=== PATIENT | female | born 1935 | race Caucasian/White ===

== ENCOUNTER 2018-04-29 10:13 | Outpatient (CLI) | payer MEDICARE, SELFPAY ==
[2018-04-29 13:01] LABS: Anion Gap 6.2 mmol/L (3-11); BUN 19 mg/dL (7-18); CO2 29.8 mmol/L (21.0-32.0); CREATININE 0.66 mg/dL (0.55-1.02); Calcium 9.8 mg/dL (8.5-10.1); Chloride 98 mmol/L (98-107); Glucose 101 mg/dL (70-100); Potassium 5.1 mmol/L (3.5-5.1); Sodium 134 mmol/L (136-145)
== END 2018-04-29 10:33 ==
PROVIDERS: PCP Family Medicine; Visit Provider Family Medicine
DX: I10 Essential (primary) hypertension (principal)
CPT/HCPCS: 36415; 80048

== ENCOUNTER 2020-02-15 14:10 | Outpatient (REF) | payer MEDICARE, SELFPAY ==
[2020-02-15 14:38] LABS: ALT 24 U/L (14-59); AST 19 U/L (15-37); Albumin 3.9 g/dL (3.4-5.0); Alkaline Phosphatase 81 U/L (46-116); Anion Gap 10.8 mmol/L (3-11); BUN 19 mg/dL (7-18); Bilirubin, Total 0.4 mg/dL (0.2-1.0); CO2 25.2 mmol/L (21.0-32.0); CREATININE 0.76 mg/dL (0.55-1.02); Calcium 10.1 mg/dL (8.5-10.1); Chloride 97 mmol/L (98-107); Glucose 98 mg/dL (74-106); Potassium 4.5 mmol/L (3.5-5.1); Sodium 133 mmol/L (136-145); Total Protein 7.2 g/dL (6.4-8.2)
== END 2020-02-15 14:30 ==
LOC: LBN 14:10
PROVIDERS: PCP Family Medicine; Visit Provider Family Medicine
DX: I10 Essential (primary) hypertension (principal)
CPT/HCPCS: 80053

== ENCOUNTER 2021-02-04 09:02 | Outpatient (CLI) | payer MEDICARE, SELFPAY ==
[2021-02-04 12:58] LABS: ALT 24 U/L (14-59); AST 17 U/L (15-37); Albumin 4.1 g/dL (3.4-5.0); Alkaline Phosphatase 73 U/L (46-116); Anion Gap 9.3 mmol/L (3-11); BUN 15 mg/dL (7-18); Bilirubin, Total 0.4 mg/dL (0.2-1.0); CO2 27.7 mmol/L (21.0-32.0); CREATININE 0.8 mg/dL (0.55-1.02); Calcium 9.3 mg/dL (8.5-10.1); Chloride 99 mmol/L (98-107); Glucose 112 mg/dL (74-106); Potassium 4.1 mmol/L (3.5-5.1); Sodium 136 mmol/L (136-145); Total Protein 7.2 g/dL (6.4-8.2)
== END 2021-02-04 09:03 | disposition home or self-care (01) ==
LOC: LOS 09:03
PROVIDERS: PCP Family Medicine; Visit Provider Family Medicine
DX: I10 Essential (primary) hypertension (principal)
CPT/HCPCS: 36415; 80053

== ENCOUNTER 2022-09-16 19:46 | Inpatient (IN) | payer MEDICARE, SELFPAY ==
[2022-09-16] VITALS (23 sets, daily range): BP systolic 112–115; BP diastolic 58–66; PULSE 72–83; RESP 13–25; TEMP 37.2; O2SAT 95–98
--- NOTE | 2022-09-16 20:00 | RT.EKG_ITS ---
APPROVED REPORT Exam: Resting ECG Reason for Exam: dizzy Patient Location: E HR:75 bpm ECG Measurements Heart Rate 75 AXIS DC 144 P 78 QRSd 82 QRS 47 QT 413 T 64 QTc 462 Conclusion Sinus rhythm...normal P axis, V-rate 60- 99 Probable left atrial enlargement...P >50mS, <-0.10mV V1 Physician: peaking t waves, no stemi
--- NOTE | 2022-09-16 20:15 | DI.CT_ITS ---
Exam(s) CT HEAD CERVICAL SPINE WO EXAM: CT HEAD CERVICAL SPINE WO CLINICAL HISTORY: fall, weak, r/o bleed, stroke. TECHNIQUE: Imaging Protocol: Axial computed tomography images with coronal and sagittal reformatted images were created and reviewed COMPARISON: CT NECK WITH CONTRAST from 04/22/2012 FINDINGS: CT Head: Ventricles and Extra axial spaces: Normal in size and morphology for the patient's age. Hemorrhage: None. Cerebral parenchyma: There are areas of decreased attenuation in the white matter consistent with sma ll vessel ischemic disease. No evidence of an acute territorial infarct. Midline shift: None. Brainstem/Cerebellum: Normal. Calvarium: Normal. Visualized Paranasal sinuses/Mastoids: Clear. Soft Tissues: Unremarkable. CT Cervical Spine: Bones: No acute fracture or subluxation. Degenerative changes are seen in the cervical spine. The barry yola are osteopenic. Soft Tissues: There is a 1.3 cm left thyroid nodule. The nodule shows heterogeneous enhancement. Th is nodule was previously measured at 1.5 cm on the prior examination from 2011. Consider nonemergent thyroid ultrasound. Lung Apices: Clear. IMPRESSION: 1. No acute intracranial process. 2. No acute fracture or subluxation in the cervical spine. RADIATION DOSE DELIVERED: 933.56mGy.cm Total DLP DATA REPOSITORY: All CT scans at this facility are submitted to the National Radiology Data Registry (NRDR) Dose Index Registry (DIR) with the [employer] (ACR). RADIATION OPTIMIZATION: All CT scans at this facility use at least one of these dose optimization te chniques: automated exposure control; mA and/or kV adjustment per patient size (includes targeted exa ms where dose is matched to clinical indication); or iterative reconstruction.
--- NOTE | 2022-09-16 20:26 | DI.RAD_ITS ---
Exam(s) XR CHEST 1V IN DI DEPT EXAM: XR CHEST 1V IN DI DEPT CLINICAL HISTORY: fall, weak, r/o pneumonia TECHNIQUE: 2D digital imaging was performed of the chest. One image was obtained. An AP view was ob tained. COMPARISON: CR CHEST 2 VIEWS PA,LAT from 10/15/2012 FINDINGS: MEDIASTINUM: Normal. HEART: Mild cardiomegaly. PULMONARY VASCULATURE: Normal. LUNGS: No focal consolidating infiltrates. PLEURAL SPACE: No pleural effusion or pneumothorax. BONE:Within normal limits for the patient's age. OTHER FINDINGS:Normal. IMPRESSION: No acute pulmonary findings. DATA REPOSITORY: RADIATION DOSE DELIVERED:
[2022-09-16] MEDS: Normal Saline 500 ML IV ×2 (20:34→22:30)
[2022-09-16 20:37] LABS: BE (Venous) -4 mmol/L (-2-3); HCO3 (Venous) 21 mmol/L (23-28); O2 Sat (Venous) 98 %; TCO2 (Venous) 18 mmol/L (24-29); pCO2 (Venous) 29 mmHg (41-51); pH (Venous) 7.45 (7.31-7.41); pO2 (Venous) 101 mmHg
[2022-09-16 20:38] LABS: Source Nasal/Nares
[2022-09-16 20:42] LABS: Abs Immature Grans 0.16 10^3/uL (0.0-0.06); Absolute Basophil Count 0.05 10^3/uL (0.0-0.2); Absolute Lymphocyte Count 1.38 10^3/uL (1.2-3.4); Absolute Monocyte Count 2.87 10^3/uL (0.1-0.8); Absolute Neutrophil Count 19.27 10^3/uL (1.2-6.7); Basophils % 0.2; HCT 35.5 % (36.0-46.0); HGB 12.7 g/dL (11.2-15.7); Immature Grans % 0.7; Lymphocytes % 5.8; MCH 32.1 pg (27.0-33.0); MCHC 35.8 % (32.0-36.0); MCV 90 fL (80-95); MPV 9.5 fL (8.0-11.0); Monocytes % 12.1; Neutrophils % 81.2; Platelet Count 260 10^3/uL (130-400); RBC 3.96 10^6/uL (3.93-5.22); RDW 12.7 % (11.7-14.6); RDW-SD 42.1 fL; WBC 23.73 10^3/uL (4.4-10.8)
--- NOTE | 2022-09-16 20:53 | W.ED.GENAD ---
Discharge Plan Disposition Patient Disposition: Admit to [facility] Discharge Details Chief Complaint: GenMedical Reason For Visit: Rhabdomyolysis Admit Date/Time: 09/16/22 22:55 Admit Provider: Tu Vela Attending Provider: Tu Vela Primary Care Provider: Olimpia Montez ED Provider: Avtar Kingston Home Meds and New Rx's Prescriptions: No Action lisinopril 40 mg tablet 40 mg PO DAILY Qty: 90 4RF Rx Instructions: increased dose/ take one tablet daily atenolol 25 mg tablet 25 mg PO DAILY Qty: 90 4RF calcium carbonate-vitamin D3 [Caltrate with Vitamin D3] 600 mg(1,500mg) -800 unit tablet 1 tab PO BID Qty: 60 11RF Discharge Data Discharge Date/Time-TO BE ENTERED AT DEPARTURE: 09/17/22 00:00 Medical Decision Making 87-year-old female with a past medical history of anxiety, hypertension, GERD, who lives alone at home, presents today for confusion. Family states that over the weekend which was 4 to 5 days ago the patient states that she had a fall at home. Patient did struggle getting up but was eventually able to do it alone. Family came and saw her this evening and noticed that she was weak, confused, had not been eating or drinking well, and was concerned. They brought her here for further evaluation. Patient denies any focal complaints aside from feeling weak. She denies any headache, chest pain, numbness, tingling, vomiting or diarrhea. She denies any dysuria. She denies any vision changes. She is not on any blood thinners. She states that she does recall falling and does not recall hitting her head. No other complaints at this time. No other modifying factors. Patient is DNR/DNI. Physical exam demonstrates well-appearing female, dry mucous membranes. No focal neurologic deficits. She is ANO x3. No focal weakness. No evidence of significant bruising or decubitus ulcer. Differential includes UTI, less likely pneumonia, dehydration electrolyte abnormality. Because she may have fallen and hit her head I am concerned for an intracranial bleed potentially. We will get a CT scan of the head and neck. X-ray, gently rehydrate, monitor closely and reassess. 11 PM Laboratory work-up is returned, white count of 23, mild left shift, no bandemia. VBG demonstrates no evidence of acidosis or PCO2 retention. Electrolytes stable. Renal function increased compared to normal, creatinine is now 1.3. BUN 39. CPK elevated at 5300 suggestive of rhabdomyolysis. Troponin elevated mildly, suggestive of type II NSTEMI. EKG shows no evidence of STEMI. Urinalysis demonstrates notable urinary tract infection. Patient has been given a total of 1 L of normal saline, she has received 2 g of ceftriaxone for treatment of the UTI. CT scan of the head negative for acute process. Chest x-ray negative for pneumonia. Patient continues to feel well. With the UTI, dehydration and rhabdomyolysis I do feel that the patient would benefit from admission. Patient is DNR/DNI, she was notably resistant to admission. She has refused cardiac catheterization or transfer. Eventually she did accept to stay overnight for rehydration and antibiotics. Family was at bedside and they agree with this plan. Discussed the case with the hospitalist Dr. Vela, he agrees with the assessment and plan. I have extensively reviewed the treatment plan with the patient. I have addressed all patient concerns at this time. I have also discussed the plan with the admitting physician and they agree with the current assessment and plan and have agreed to assume responsibility for the patient. All parties demonstrate verbal understanding and agreement with our assessment and plan at this time. The documentation in this chart was dictated using [employer] dictation software. Please excuse any dictation errors. I will place admission orders on his behalf. FINDINGS: Brain: No intra or extra-axial bleed. Mild atrophy. Moderate periventricular and subcortical white matter disease. Cortical ribbon and central martinez structures are intact. Cerebral ventricles: No hydrocephalus. Basal cisterns are patent. Paranasal sinuses: No mucosal thickening or fluid levels. Mastoid air cells: Mastoid air cells are clear. Bones/joints: No significant bony abnormality. No fracture. Soft tissues: Unremarkable. IMPRESSION: 1. No acute intracranial abnormality. 2. No evidence of acute infarct or hemorrhage FINDINGS: Bones/joints: No acute fracture. No subluxation. Significant disc space narrowing with endplate spondylosis at C3-C4, C4-C5 and C5-C6. Cervical dextroscoliosis. Spinal cord: Central canal narrowing most notable at C5-C6. Lungs: No apical pneumothorax. Pleural spaces: Biapical pleural thickening and calcification. Thyroid: Heterogeneous hyperdense 1.2 cm left thyroid lobe nodule. Soft tissues: Small amount of possible intravascular gas in the retroclavicular regions. Additional focus soft tissue gas medial to the right clavicular head possibly degenerative in origin. IMPRESSION: 1. No acute fracture. 2. Degenerative disc disease. 3. 1.2 cm left thyroid nodule. Consider nonemergent thyroid ultrasound correlation. Thank you for allowing us to participate in the care of your patient. Dictated and Authenticated by: Eduar Alonzo MD 09/16/2022 9:59 PM Eastern Time ([place] & [place]) FINDINGS: Lungs: Chronic interstitial prominence No consolidation. Pleural spaces: Unremarkable. No pleural effusion. No pneumothorax. Heart/Mediastinum: Tortuous aorta and mild cardiomegaly. Bones/joints: Unremarkable. IMPRESSION: No acute findings. Thank you for allowing us to participate in the care of your patient. Dictated and Authenticated by: Sesar Rodríguez MD 09/16/2022 9:24 PM Eastern Time ([place] & [place]) HPI General Date/Time Provider Initiated Documentation: 09/16/22 20:17. HPI Narrative: 87-year-old female with a past medical history of anxiety, hypertension, GERD, who lives alone at home, presents today for confusion. Family states that over the weekend which was 4 to 5 days ago the patient states that she had a fall at home. Patient did struggle getting up but was eventually able to do it alone. Family came and saw her this evening and noticed that she was weak, confused, had not been eating or drinking well, and was concerned. They brought her here for further evaluation. Patient denies any focal complaints aside from feeling weak. She denies any headache, chest pain, numbness, tingling, vomiting or diarrhea. She denies any dysuria. She denies any vision changes. She is not on any blood thinners. She states that she does recall falling and does not recall hitting her head. No other complaints at this time. No other modifying factors. Patient is DNR/DNI. Related Data Home Medications Medication Instructions Recorded Confirmed calcium carbonate 600 mg-vitamin 1 tab PO BID #60 tabs 06/06/20 09/16/22 D3 20 mcg (800 unit) tablet (Caltrate with Vitamin D3) atenolol 25 mg tablet 25 mg PO DAILY #90 tabs 02/28/22 09/16/22 lisinopril 40 mg tablet 40 mg PO DAILY #90 tabs 02/28/22 09/16/22 Previous Rx's Medication Instructions Recorded calcium carbonate 600 mg-vitamin 1 tab PO BID #60 tabs 06/06/20 D3 20 mcg (800 unit) tablet (Caltrate with Vitamin D3) atenolol 25 mg tablet 25 mg PO DAILY #90 tabs 02/28/22 lisinopril 40 mg tablet 40 mg PO DAILY #90 tabs 02/28/22 Allergies Allergy/AdvReac Type Severity Reaction Status Date / Time citalopram AdvReac Intermediate PANIC Verified 09/16/22 20:13 ATTACKS zolpidem AdvReac Intermediate CONFUSION Verified 09/16/22 20:13 General Stated Complaint: GenMedical ED: 3 Review of Systems All systems reviewed & are unremarkable except as noted in HPI and below PFSH All Active Problems Mixed hearing loss, bilateral (Acute) Anxiety (Acute) Essential hypertension (Acute 05/17/13) POLST (Physician Orders for Life-Sustaining Treatment) (Acute) Hearing impairment (Acute) Medical History Gastroesophageal reflux disease (12/18/14) Microscopic hematuria (10/22/16) Surgical History Excision Right cheek~benign mass Extraction of cataract B/L Family History Mother , 96 Heart disease Neoplasm Father , 78 Essential hypertension Heart disease Colon cancer Sister , 50 Cancer Brother , DROWNED at age 39. No problems noted. Sister Breast cancer Son No problems noted. Son No problems noted. Daughter No problems noted. Maternal Grandfather , 48 No problems noted. Paternal Grandfather , 84 No problems noted. Maternal Grandmother , 84 No problems noted. Paternal Grandmother , 74 No problems noted. Social History Smoking/Tobacco Use Status: Never Second Hand Exposure: No Smoking risk assessment performed?: Yes Alcohol Intake: never Drug use: Never Substance use type: does not use Household members: none Housing: house Number of Children: 3 Communication Needs: Hard of Hearing and Corrective Lenses Do you need help understanding health information?: Never Pets and animals: No Sexually active: No Do you think of yourself as: straight/heterosexual Current gender identity: female What is your relationship status?: How often do you talk on the phone with friends or family?: three or more times per week Do you belong to any clubs or organized social groups?: no Panel score (0-1 are the most socially isolated patients): 1 What type of physical activity do you participate in: walking Marylin/Congregation: No preference Drive intox or ride w/intox recycling collections driver: No Exam Narrative Exam Narrative: 1.Const: Well-nourished, Well-developed, appearing stated age 2.Eyes: PERRL, no conjunctival injection, and symmetrical lids. 3.ENT: Atraumatic external nose and ears. Dry MM. Neck: Symmetric, trachea midline, No thyromegaly. There is no evidence of raccoon eyes, woodall sign, CSF rhinorrhea, mastoid tenderness, cranial crepitus, hemotympanum, exophthalmos, or hyphema. Patient demonstrates intact dentition with no signs of tooth avulsion or fracture, no signs of jaw deformity, no evidence of a LeFort's fracture, with an intact palate, nose and orbital region. There is no evidence of a nasal septal hematoma. No proptosis. Jaw closes symmetrically. Airway is clear. 4.CVS: +S1/S2, No murmurs or gallops. Peripheral pulses 2+ and equal in all extremities. Brisk capillary refill in all extremities. 5.RESP: Unlabored respiratory effort. Clear to auscultation bilaterally. No wheezes rales or rhonchi 6.GI: Soft, Nontender/Nondistended, No hepatosplenomegaly. No guarding or rebound. 7.MSK: Normocephalic/Atraumatic, Extremities w/o deformity or ttp No cyanosis or clubbing, Normal movement of all extremities 8.Skin: Warm, Dry. No rashes or lesions. 9.Neuro: tree and shrub technician II-XII grossly intact. Sensation grossly intact, no focal neurologic deficits. All 6 cardinal planes of vision are fully intact. No evidence of rotatory or vertical nystagmus. The patient demonstrated a normal [id number], good dexterity. There was no evidence of dysdiadochokinesia. Sensation was intact bilaterally as well as muscle strength bilaterally for all extremities. Patient was able to verbalize butter cup with no slurring, or miss pronunciation. 10.Psych: (AAO) x3. Appropriate mood and affect Course Vital Signs Vital signs: Vital Signs Temperature 37.2 C 09/16/22 19:51 Pulse 77 09/16/22 19:51 Respiratory Rate 18 09/16/22 19:51 Blood Pressure 112/58 L 09/16/22 19:51 Pulse Oximetry 98 09/16/22 19:51 Temperature 37.2 C 09/16/22 19:51 Temperature Source Tympanic 09/16/22 19:51 Pulse 73 09/16/22 20:31 Pulse 74 09/16/22 20:40 Respiratory Rate 20 09/16/22 20:40 Respiratory Effort Normal 09/16/22 20:03 Respiratory Depth Normal 09/16/22 20:03 Respiratory Pattern Normal 09/16/22 20:03 Blood Pressure 113/58 L 09/16/22 20:31 Blood Pressure Mean 68 09/16/22 20:31 Blood Pressure Position Sitting 09/16/22 19:51 Pulse Oximetry 96 09/16/22 20:40 Oxygen Delivery Method Room Air 09/16/22 19:51 Oxygen Flow Rate 0 09/16/22 19:51 Lab/Test Results Lab/Test Results: Laboratory Tests Range/Units 09/16/22 09/16/22 09/16/22 20:20 20:20 20:30 WBC (4.4-10.8) 10^3/uL RBC (3.93-5.22) 10^6/uL Hgb (11.2-15.7) g/dL Hct (36.0-46.0) % MCV (80-95) fL MCH (27.0-33.0) pg MCHC (32.0-36.0) % RDW (11.7-14.6) % Plt Count (130-400) 10^3/uL MPV (8.0-11.0) fL Immature Gran % Neutrophils % Lymphocytes % Monocytes % Eosinophils % Basophils % Nucleated RBC % (0.0-0.3) % Absolute Neutrophils (1.2-6.7) 10^3/uL Absolute Lymphocytes (1.2-3.4) 10^3/uL Absolute Monocytes (0.1-0.8) 10^3/uL Absolute Eosinophils (0.0-0.7) 10^3/uL Absolute Basophils (0.0-0.2) 10^3/uL VBG pH (7.31-7.41) 7.45 H VBG pCO2 (41-51) mmHg 29 L VBG pO2 mmHg 101 VBG HCO3 (23-28) mmol/L 21 L VBG Total CO2 (24-29) mmol/L 18 L VBG O2 Saturation % 98 VBG Base Excess (-2-3) mmol/L -4 L VBG Lactate (0.6-1.4) mmol/L 1.0 COVID-19 Source Nasal/Nares Range/Units 09/16/22 20:30 WBC (4.4-10.8) 10^3/uL 23.73 H RBC (3.93-5.22) 10^6/uL 3.96 Hgb (11.2-15.7) g/dL 12.7 Hct (36.0-46.0) % 35.5 L MCV (80-95) fL 90 MCH (27.0-33.0) pg 32.1 MCHC (32.0-36.0) % 35.8 RDW (11.7-14.6) % 12.7 Plt Count (130-400) 10^3/uL 260 MPV (8.0-11.0) fL 9.5 Immature Gran % 0.7 Neutrophils % 81.2 Lymphocytes % 5.8 Monocytes % 12.1 Eosinophils % 0.0 Basophils % 0.2 Nucleated RBC % (0.0-0.3) % 0.0 Absolute Neutrophils (1.2-6.7) 10^3/uL 19.27 H Absolute Lymphocytes (1.2-3.4) 10^3/uL 1.38 Absolute Monocytes (0.1-0.8) 10^3/uL 2.87 H Absolute Eosinophils (0.0-0.7) 10^3/uL 0.00 Absolute Basophils (0.0-0.2) 10^3/uL 0.05 VBG pH (7.31-7.41) VBG pCO2 (41-51) mmHg VBG pO2 mmHg VBG HCO3 (23-28) mmol/L VBG Total CO2 (24-29) mmol/L VBG O2 Saturation % VBG Base Excess (-2-3) mmol/L VBG Lactate (0.6-1.4) mmol/L COVID-19 Source
[2022-09-16 21:07] LABS: ALT 74 U/L (14-59); AST 164 U/L (15-37); Alkaline Phosphatase 81 U/L (46-116); Bilirubin, Total 1.1 mg/dL (0.2-1.0); Chloride 97 mmol/L (98-107); Sodium 130 mmol/L (136-145)
[2022-09-16 21:09] LABS: TSH (W/Ref FT4) 1.02 uIU/mL (0.36-3.74)
[2022-09-16 21:14] LABS: COVID-19 PCR Negative (Negative)
--- NOTE | 2022-09-16 21:25 | DI.VRAD_ITS ---
PROCEDURE INFORMATION: Exam: XR Chest Exam date and time: 09/16/2022 9:10 PM Age: 87 years old Clinical indication: Other: Fall, weak, R/O pneumonia TECHNIQUE: Imaging protocol: Radiologic exam of the chest. Views: 1 view. COMPARISON: CT HEAD CERVICAL SPINE WO 09/16/2022 8:51 PM FINDINGS: Lungs: Chronic interstitial prominence No consolidation. Pleural spaces: Unremarkable. No pleural effusion. No pneumothorax. Heart/Mediastinum: Tortuous aorta and mild cardiomegaly. Bones/joints: Unremarkable. IMPRESSION: No acute findings. Dictated and Authenticated by: Sesar Rodríguez MD. Ordering:YESENIA Nova MD
[2022-09-16 21:29] LABS: Albumin 3.4 g/dL (3.4-5.0); BUN 39 mg/dL (7-18); CREATININE 1.3 mg/dL (0.55-1.02); Calcium 9.4 mg/dL (8.5-10.1); Glucose 153 mg/dL (74-106)
[2022-09-16 21:30] LABS: Creatine Kinase 5320 U/L (26-192)
[2022-09-16 21:31] LABS: Troponin I 565 ng/L (<or=60)
[2022-09-16 21:48] LABS: Bilirubin Negative (Negative); Blood Large (Negative); Clarity Clear (Clear); Glucose Negative (Negative); Ketones 40 mg/dL (Negative); Leukocyte Esterase Small (Negative); Nitrite Positive (Negative); Specific Gravity 1.025 (1.005-1.025); Urobilinogen 0.2 mg/dL (Up to 0.2); pH 5.5 (5-8)
[2022-09-16 21:55] LABS: Bacteria Many HPF (Negative); C & S Indicated? Yes; Casts Negative LPF (Negative); Crystals Negative HPF (Negative); Epithelial Cells Few HPF (Negative); Mucus Negative (Negative); Other Cells Negative (Negative); RBC 20-50 HPF (0-2); WBC 20-50 HPF (0-5)
[2022-09-16 22:00] LABS: Diff Comment Agrees w/ Instrument; RBC Morphology Normal
--- NOTE | 2022-09-16 22:00 | DI.VRAD_ITS ---
PROCEDURE INFORMATION: Exam: CT Head Without Contrast Exam date and time: 09/16/2022 8:51 PM Age: 87 years old Clinical indication: Stroke-like symptoms; Other: Weakness, fall; Additional info: Fall, weak, R/O bleed, stroke TECHNIQUE: Imaging protocol: Computed tomography of the head without contrast. Total images: 1968 Radiation optimization: All CT scans at this facility use at least one of these dose optimization techniques: automated exposure control; mA and/or kV adjustment per patient size (includes targeted exams where dose is matched to clinical indication); or iterative reconstruction. Other technique: STROKE PROTOCOL was implemented. COMPARISON: No relevant prior studies available. FINDINGS: Brain: No intra or extra-axial bleed. Mild atrophy. Moderate periventricular and subcortical white matter disease. Cortical ribbon and central martinez structures are intact. Cerebral ventricles: No hydrocephalus. Basal cisterns are patent. Paranasal sinuses: No mucosal thickening or fluid levels. Mastoid air cells: Mastoid air cells are clear. Bones/joints: No significant bony abnormality. No fracture. Soft tissues: Unremarkable. IMPRESSION: 1. No acute intracranial abnormality. 2. No evidence of acute infarct or hemorrhage. ASSESSMENT: ASPECTS ([facility] Stroke Program Early CT Score) is 10. PROCEDURE INFORMATION: Exam: CT Cervical Spine Without Contrast Exam date and time: 09/16/2022 8:51 PM Age: 87 years old Clinical indication: Stroke-like symptoms; Other: Weakness, fall; Additional info: Fall, weak, R/O bleed, stroke TECHNIQUE: Imaging protocol: Computed tomography of the cervical spine without contrast. Radiation optimization: All CT scans at this facility use at least one of these dose optimization techniques: automated exposure control; mA and/or kV adjustment per patient size (includes targeted exams where dose is matched to clinical indication); or iterative reconstruction. COMPARISON: No relevant prior studies available. FINDINGS: Bones/joints: No acute fracture. No subluxation. Significant disc space narrowing with endplate spondylosis at C3-C4, C4-C5 and C5-C6. Cervical dextroscoliosis. Spinal cord: Central canal narrowing most notable at C5-C6. Lungs: No apical pneumothorax. Pleural spaces: Biapical pleural thickening and calcification. Thyroid: Heterogeneous hyperdense 1.2 cm left thyroid lobe nodule. Soft tissues: Small amount of possible intravascular gas in the retroclavicular regions. Additional focus soft tissue gas medial to the right clavicular head possibly degenerative in origin. IMPRESSION: 1. No acute fracture. 2. Degenerative disc disease. 3. 1.2 cm left thyroid nodule. Consider nonemergent thyroid ultrasound correlation. Dictated and Authenticated by: Eduar Alonzo MD. Ordering:YESENIA Nova MD
[2022-09-16] MEDS: cefTRIAXone 2 GM/50 ML BAG IVPB (22:30)
[2022-09-16] MEDS: Aspirin 81 MG CHEW 324 MG CH (23:09)
[2022-09-16] MEDS: Normal Saline 1,000 ML 150 ML IV (23:37)
[2022-09-16 23:57] LABS: Troponin I 427 ng/L (<or=60)
[2022-09-17] VITALS (12 sets, daily range): BP systolic 101–146; BP diastolic 60–84; PULSE 67–129; RESP 14–23; TEMP 36.9–38.4; O2SAT 96–99
--- NOTE | 2022-09-17 03:49 | W.PM.HP.N ---
Date of service: 09/16/22 Time of Service: 23:00 Assessment and Plan Assessment and plan (1) Rhabdomyolysis: Start date: 09/16/22 Status: Acute Assessment and plan: This is an 87-year lady who was found at home 4 days after a fall ambulatory with minimal bruising but altered neuro status and weak. She had an elevated CPK at about 5000 upon evaluation in the ED and will be admitted with IV hydration following dehydration and UTI with treatment. She is a DNR/DNI. (2) UTI (urinary tract infection): Start date: 09/16/22 Status: Acute Assessment and plan: Positive urinalysis with patient on Rocephin IV and to be continued with follow-up on urine culture with sensitivities to guide conversion to oral antibiotic therapy for outpatient treatment. Present the patient needs inpatient treatment because of rhabdomyolysis and dehydration. (3) Acute dehydration: Start date: 09/16/22 Status: Acute Assessment and plan: Secondary to altered menal status and being at home alone after falls. IV hydration and monitor labs. Watch for fluid overload. (4) Elevated troponin level not due to acute coronary syndrome: Start date: 09/16/22 Status: Acute Assessment and plan: Mild to moderate elevation with trending downward in the ED and will be trended in the hospital. Cardiac monitoring is not necessary patient have no symptoms. She is a DNR/DNI. This is most likely secondary to strain of acute dehydration and decreased intake. She does have risk factors of hypertension with unknown lipid status and will be placed on a baby aspirin daily. She was loaded with a full dose aspirin. (5) Multiple falls: Start date: 09/16/22 Status: Acute Assessment and plan: Patient has been following over the last several days and this may be associated with UTI. She had altered mental status and was not drinking well being dehydrated as well. This should resolve with treatment of her acute processes. (6) Hyponatremia: Start date: 09/16/22 Status: Acute Assessment and plan: Gentle IV hydration and trend labs. (7) Essential hypertension: Status: Chronic Assessment and plan: Chronically on atenolol and lisinopril which will be held during his hospital stay with patient being dehydrated and having low normal blood pressure. She does not appear to be septic at this time but does have a significant elevation in the WBC with altered mental status. (8) Thyroid nodule greater than or equal to 1 cm in diameter incidentally noted on imaging study: Start date: 09/16/22 Status: Acute Assessment and plan: New incidental finding on CT of the neck with follow-up outpatient ultrasound recommended. PCP can monitor and follow-up on this new discovery. History of Present Illness History of Present Illness Chief Complaint: Fall at home with altered mental status Narrative: This is an 87-year-old female patient who is on minimal medications at home mostly taking antihypertensives and lives alone presented to the ED with family who found her after 4 to 5 days of not being seen to be confused and wandering at home. The patient did have a fall at home about 4 to 5 days prior to this admission but was able to get up on her own. When the family found her the day of admission she was weak, confused and did not appear to be eating and drinking well. They were concerned and wanted her further evaluated. She had no focal tenderness or pain and had no headache and she denies any nausea or vomiting. She also denied any urinary symptoms. She had not been on aspirin or any anticoagulation. She was evaluated ED with CT of the head and neck as well as chest x-ray and lab did reveal leukocytosis with elevation in the creatinine from her baseline as well as positive UA which was cultured. She had no evidence of pneumonia or injury by imaging. She did have an elevated troponin. The patient was given Rocephin 2 g along with IV hydration and was admitted for UTI with altered mental status and dehydration. She also had positive CPK with rhabdomyolysis which would be treated with IV hydration as with dehydration treatment. Patient is a DNR/DNI. Review of Systems Narrative: 13 point review of systems otherwise unrevealing or stable with patient being a poor historian. PFSH All Active Problems (Updated 09/17/22 @ 04:29 by Tu Vela) Thyroid nodule greater than or equal to 1.5 cm in diameter incidentally noted on imaging study (Acute) Thyroid nodule greater than or equal to 1 cm in diameter incidentally noted on imaging study (Acute) Hyponatremia (Acute) Elevated troponin level not due to acute coronary syndrome (Acute) Acute dehydration (Acute) Multiple falls (Acute) UTI (urinary tract infection) (Acute) Rhabdomyolysis (Acute) Mixed hearing loss, bilateral (Acute) Anxiety (Acute) Essential hypertension (Chronic 05/17/13) POLST (Physician Orders for Life-Sustaining Treatment) (Acute) Hearing impairment (Acute) Medical History Gastroesophageal reflux disease (12/18/14) Microscopic hematuria (10/22/16) Surgical History Excision Right cheek~benign mass Extraction of cataract B/L Family History Mother , 96 Heart disease Neoplasm Father , 78 Essential hypertension Heart disease Colon cancer Sister , 50 Cancer Brother , DROWNED at age 39. No problems noted. Sister Breast cancer Son No problems noted. Son No problems noted. Daughter No problems noted. Maternal Grandfather , 48 No problems noted. Paternal Grandfather , 84 No problems noted. Maternal Grandmother , 84 No problems noted. Paternal Grandmother , 74 No problems noted. Social History Smoking/Tobacco Use Status: Never Second Hand Exposure: No Smoking risk assessment performed?: Yes Alcohol Intake: never Drug use: Never Substance use type: does not use Household members: none Housing: house Number of Children: 3 Communication Needs: Hard of Hearing and Corrective Lenses Do you need help understanding health information?: Never Pets and animals: No Sexually active: No Do you think of yourself as: straight/heterosexual Current gender identity: female What is your relationship status?: How often do you talk on the phone with friends or family?: three or more times per week Do you belong to any clubs or organized social groups?: no Panel score (0-1 are the most socially isolated patients): 1 What type of physical activity do you participate in: walking Marylin/Presybeterian: No preference Drive intox or ride w/intox dedicated local truck driver: No Meds Allergies and Home Medications Allergies Allergy/AdvReac Type Severity Reaction Status Date / Time citalopram AdvReac Intermediate PANIC Verified 09/16/22 20:13 ATTACKS zolpidem AdvReac Intermediate CONFUSION Verified 09/16/22 20:13 Home Medications Medication Instructions Recorded Confirmed Type calcium carbonate 600 mg-vitamin 1 tab PO BID #60 tabs 06/06/20 09/16/22 Rx D3 20 mcg (800 unit) tablet (Caltrate with Vitamin D3) atenolol 25 mg tablet 25 mg PO DAILY #90 tabs 02/28/22 09/16/22 Rx lisinopril 40 mg tablet 40 mg PO DAILY #90 tabs 02/28/22 09/16/22 Rx Exam Narrative Exam Narrative: General: Patient appears appropriate for age, very thin almost cachectic, she awakens and is alert at least to person and place and appears in no acute distress. She is somnolent but it is early in the morning. She appears in no acute distress lying in bed. HEENT: Normocephalic, eyes with pupils equal and reactive to light symmetrically, extraocular movement tact and sclera anicteric. Oropharynx with dry mucosa and poor dentition with carious and missing teeth. Neck: Supple without JVD. Back: Kyphotic without CVA tenderness. Lungs: No focalizing rales or rhonchi, fair aeration. Breast: Exam deferred. Heart: Regular rate and rhythm with no murmurs or gallops appreciated. Abdomen: Scaphoid contour, soft and nontender to palpation with no palpable hepatosplenomegaly. Bowel sounds positive in all quadrants Genitalia/rectal: Exam deferred. Extremities: Without clubbing, cyanosis or pitting edema. Fair capillary refill. Muscle wasting diffusely. There are bruises over the left knee which were not indurated and appear new and almost linear. There is no joint swelling with all joints have fair range of motion. Skin: Pale, warm and dry with decreased turgor. Bruising over left knee as mentioned. Neuro: Cranial nerves II through XII grossly intact, no focalizing motor deficits or tremor. DTRs physiologic and symmetrical. No Babinski's. Psych: Flattened affect with normal mood. No abnormal thought processes manifested but patient is minimal in conversation. Remote and recent memory not testable with patient somnolent with minimal conversation. Results Imaging Imaging Studies: Exam: CT Head Without Contrast Exam date and time: 09/16/2022 8:51 PM Age: 87 years old Clinical indication: Stroke-like symptoms; Other: Weakness, fall; Additional info: Fall, weak, R/O bleed, stroke TECHNIQUE: Imaging protocol: Computed tomography of the head without contrast. Total images: 1967 Radiation optimization: All CT scans at this facility use at least one of these dose optimization techniques: automated exposure control; mA and/or kV adjustment per patient size (includes targeted exams where dose is matched to clinical indication); or iterative reconstruction. Other technique: STROKE PROTOCOL was implemented. COMPARISON: No relevant prior studies available. FINDINGS: Brain: No intra or extra-axial bleed. Mild atrophy. Moderate periventricular and subcortical white matter disease. Cortical ribbon and central martinez structures are intact. Cerebral ventricles: No hydrocephalus. Basal cisterns are patent.? Paranasal sinuses: No mucosal thickening or fluid levels. Mastoid air cells: Mastoid air cells are clear. Bones/joints: No significant bony abnormality. No fracture. Soft tissues: Unremarkable. IMPRESSION: 1. ? No acute intracranial abnormality. 2. ? No evidence of acute infarct or hemorrhage. ASSESSMENT: ASPECTS ([place] Stroke Program Early CT Score) is 10. PROCEDURE INFORMATION: Exam: CT Cervical Spine Without Contrast Exam date and time: 09/16/2022 8:51 PM Age: 87 years old Clinical indication: Stroke-like symptoms; Other: Weakness, fall; Additional info: Fall, weak, R/O bleed, stroke TECHNIQUE: Imaging protocol: Computed tomography of the cervical spine without contrast. Radiation optimization: All CT scans at this facility use at least one of these dose optimization techniques: automated exposure control; mA and/or kV adjustment per patient size (includes targeted exams where dose is matched to clinical indication); or iterative reconstruction. COMPARISON: No relevant prior studies available. FINDINGS: Bones/joints: No acute fracture. No subluxation. Significant disc space narrowing with endplate spondylosis at C3-C4, C4-C5 and C5-C6. Cervical dextroscoliosis. Spinal cord: Central canal narrowing most notable at C5-C6. Lungs: No apical pneumothorax. Pleural spaces: Biapical pleural thickening and calcification. Thyroid: Heterogeneous hyperdense 1.2 cm left thyroid lobe nodule. Soft tissues: Small amount of possible intravascular gas in the retroclavicular regions. Additional focus soft tissue gas medial to the right clavicular head possibly degenerative in origin. IMPRESSION: 1. ? No acute fracture. 2. ? Degenerative disc disease. 3. ? 1.2 cm left thyroid nodule. Consider nonemergent thyroid ultrasound correlation. Exam: XR Chest Exam date and time: 09/16/2022 9:10 PM Age: 87 years old Clinical indication: Other: Fall, weak, R/O pneumonia TECHNIQUE: Imaging protocol: Radiologic exam of the chest. Views: 1 view. COMPARISON: CT HEAD CERVICAL SPINE WO 09/16/2022 8:51 PM FINDINGS: Lungs:? Chronic interstitial prominence No consolidation. Pleural spaces: Unremarkable. No pleural effusion. No pneumothorax. Heart/Mediastinum:? Tortuous aorta and mild cardiomegaly. Bones/joints: Unremarkable. IMPRESSION: No acute findings. Labs 09/16/22 20:30 09/16/22 20:20 Labs: Laboratory Results - last 24 hr 09/16/22 09/16/22 09/16/22 20:20 20:20 20:20 WBC RBC Hgb Hct MCV MCH MCHC RDW Plt Count MPV Immature Gran % Neutrophils % Lymphocytes % Monocytes % Eosinophils % Basophils % Nucleated RBC % Absolute Neutrophils Absolute Lymphocytes Absolute Monocytes Absolute Eosinophils Absolute Basophils RBC Morphology VBG pH 7.45 H VBG pCO2 29 L VBG pO2 101 VBG HCO3 21 L VBG Total CO2 18 L VBG O2 Saturation 98 VBG Base Excess -4 L VBG Lactate Sodium 130 L Potassium 4.0 Chloride 97 L Carbon Dioxide 21.0 Anion Gap 12.0 H BUN 39 H Creatinine 1.3 H Est GFR (CKD-EPI 2020) 40.30 Glucose 153 H Calcium 9.4 Magnesium Total Bilirubin 1.1 H AST 164 H ALT 74 H Alkaline Phosphatase 81 Creatine Kinase 5320 H Troponin I 565 H* Total Protein 7.0 Albumin 3.4 TSH 1.02 Urine Color Urine Clarity Urine pH Ur Specific Purdum Urine Protein Urine Ketones Urine Blood Urine Nitrite Urine Bilirubin Urine Urobilinogen Ur Leukocyte Esterase Urine RBC Urine WBC Ur Epithelial Cells Urine Crystals Urine Bacteria Urine Casts Urine Mucus Urine Other Ur Culture Indicated? Urine Glucose COVID-19 Source SARS-CoV-2 (PCR) 09/16/22 09/16/22 09/16/22 20:20 20:20 20:30 WBC RBC Hgb Hct MCV MCH MCHC RDW Plt Count MPV Immature Gran % Neutrophils % Lymphocytes % Monocytes % Eosinophils % Basophils % Nucleated RBC % Absolute Neutrophils Absolute Lymphocytes Absolute Monocytes Absolute Eosinophils Absolute Basophils RBC Morphology VBG pH VBG pCO2 VBG pO2 VBG HCO3 VBG Total CO2 VBG O2 Saturation VBG Base Excess VBG Lactate 1.0 Sodium Potassium Chloride Carbon Dioxide Anion Gap BUN Creatinine Est GFR (CKD-EPI 2020) Glucose Calcium Magnesium 2.0 Total Bilirubin AST ALT Alkaline Phosphatase Creatine Kinase Troponin I Total Protein Albumin TSH Urine Color Urine Clarity Urine pH Ur Specific Purdum Urine Protein Urine Ketones Urine Blood Urine Nitrite Urine Bilirubin Urine Urobilinogen Ur Leukocyte Esterase Urine RBC Urine WBC Ur Epithelial Cells Urine Crystals Urine Bacteria Urine Casts Urine Mucus Urine Other Ur Culture Indicated? Urine Glucose COVID-19 Source Nasal/Nares SARS-CoV-2 (PCR) Negative 09/16/22 09/16/22 09/16/22 20:30 21:40 23:25 WBC 23.73 H RBC 3.96 Hgb 12.7 Hct 35.5 L MCV 90 MCH 32.1 MCHC 35.8 RDW 12.7 Plt Count 260 MPV 9.5 Immature Gran % 0.7 Neutrophils % 81.2 Lymphocytes % 5.8 Monocytes % 12.1 Eosinophils % 0.0 Basophils % 0.2 Nucleated RBC % 0.0 Absolute Neutrophils 19.27 H Absolute Lymphocytes 1.38 Absolute Monocytes 2.87 H Absolute Eosinophils 0.00 Absolute Basophils 0.05 RBC Morphology Normal VBG pH VBG pCO2 VBG pO2 VBG HCO3 VBG Total CO2 VBG O2 Saturation VBG Base Excess VBG Lactate Sodium Potassium Chloride Carbon Dioxide Anion Gap BUN Creatinine Est GFR (CKD-EPI 2020) Glucose Calcium Magnesium Total Bilirubin AST ALT Alkaline Phosphatase Creatine Kinase Troponin I 427 H* Total Protein Albumin TSH Urine Color Yellow Urine Clarity Clear Urine pH 5.5 Ur Specific Purdum 1.025 Urine Protein >=300 H Urine Ketones 40 H Urine Blood Large H Urine Nitrite Positive H Urine Bilirubin Negative Urine Urobilinogen 0.2 Ur Leukocyte Esterase Small H Urine RBC 20-50 H Urine WBC 20-50 H Ur Epithelial Cells Few Urine Crystals Negative Urine Bacteria Many Urine Casts Negative Urine Mucus Negative Urine Other Negative Ur Culture Indicated? Yes Urine Glucose Negative COVID-19 Source SARS-CoV-2 (PCR) Last Vital Signs Temp 37.1 C 09/17/22 00:03 Pulse 77 09/17/22 00:03 Resp 18 09/17/22 00:03 BP 118/71 09/17/22 00:03 Pulse Ox 97 09/17/22 00:03 Time Spent Time spent with Patient: >75 minutes Time was spent: preparing to see the patient(eg.review tests), obtaining and/or reviewing separately otained hiistory, ordering medications,tests, procedures, referring, communicating with other health director of home care hospice, indepentently interpreting results and care coordination
[2022-09-17] MEDS: Acetaminophen 325 MG TAB PO ×2 (04:30→13:51)
[2022-09-17] MEDS: Heparin 5,000 UNITS/ML VIAL 5000 UNITS SC ×3 (05:11→21:16)
[2022-09-17 06:02] LABS: HCT 31.2 % (36.0-46.0); HGB 10.8 g/dL (11.2-15.7); MCH 31.5 pg (27.0-33.0); MCHC 34.6 % (32.0-36.0); MCV 91 fL (80-95); MPV 9.2 fL (8.0-11.0); Platelet Count 217 10^3/uL (130-400); RBC 3.43 10^6/uL (3.93-5.22); RDW-SD 42.8 fL; WBC 19.65 10^3/uL (4.4-10.8)
[2022-09-17 06:27] LABS: ALT 58 U/L (14-59); AST 99 U/L (15-37); Albumin 2.4 g/dL (3.4-5.0); Alkaline Phosphatase 70 U/L (46-116); Anion Gap 10.4 mmol/L (3-11); BUN 33 mg/dL (7-18); Bilirubin, Total 0.7 mg/dL (0.2-1.0); CO2 20.6 mmol/L (21.0-32.0); CREATININE 1.2 mg/dL (0.55-1.02); Calcium 8.2 mg/dL (8.5-10.1); Chloride 102 mmol/L (98-107); Estimated GFR 44.36 (mL/min/1.73m2); Glucose 118 mg/dL (74-106); Magnesium 1.8 mg/dL (1.8-2.4); Potassium 3.5 mmol/L (3.5-5.1); Sodium 133 mmol/L (136-145); Total Protein 5.5 g/dL (6.4-8.2)
[2022-09-17 06:28] LABS: Troponin I 353 ng/L (<or=60)
[2022-09-17] MEDS: Aspirin 81 MG CHEW PO (08:35)
[2022-09-17] MEDS: Normal Saline Flush 10 ML SYR IVP ×2 (08:35→21:16)
--- NOTE | 2022-09-17 08:52 | OT.INIE ---
Occupational Therapy Notes Inpatient Occupational Therapy Evaluation Date: 09/17/22 Referring Doctor:Tu Vela MD OT Orders: Non-Urgent: Limited Ability Precautions: Fall, Standard, DNR/DNI PATIENT PROFILE/ADMITTING DIAGNOSIS: Pt is a 87 year old female who was admitted for the following dx of Thyroid nodule greater than or equal to 1.5 cm in diameter incidentally noted on imaging study (Acute) Thyroid nodule greater than or equal to 1 cm in diameter incidentally noted on imaging study (Acute), Hyponatremia (Acute), Elevated troponin level not due to acute coronary syndrome (Acute), Acute dehydration (Acute) Multiple falls (Acute), UTI (urinary tract infection) (Acute), Rhabdomyolysis (Acute), Mixed hearing loss, bilateral (Acute), Anxiety (Acute). Past Medical History: All Active Problems?(Updated 09/17/22 @ 04:29 by Tu Vela) Thyroid nodule greater than or equal to 1.5 cm in diameter incidentally noted on imaging study (Acute) Thyroid nodule greater than or equal to 1 cm in diameter incidentally noted on imaging study (Acute) Hyponatremia (Acute) Elevated troponin level not due to acute coronary syndrome (Acute) Acute dehydration (Acute) Multiple falls (Acute) UTI (urinary tract infection) (Acute) Rhabdomyolysis (Acute) Mixed hearing loss, bilateral (Acute) Anxiety (Acute) Essential hypertension (Chronic 05/17/13) POLST (Physician Orders for Life-Sustaining Treatment) (Acute) Hearing impairment (Acute) Medical History? Gastroesophageal reflux disease (12/18/14) Microscopic hematuria (10/22/16) Surgical History? Excision Right cheek~benign massExtraction of cataract B/L Social History/Home Situation: Pt states that she lives in a private home and is (I) at her baseline level of function. She reports that she does her own wood and home tasks. She is (I) with her dressing and bathing routines. She notes that she does not need any adaptive devices at her baseline level of function. SUBJECTIVE: Pt states that she is feeling better. Her daughter is present in the room and notes that she is doing better today than yesterday. OBJECTIVE: General Observation: Pleasant, she is hard of hearing but her hearing aids are at home. Mental Status: A&Ox4 Pain: slight c/o pain throughout back with bruising noticed ROM: RUE AROM WFL L UE AROM WFL STRENGTH: RUE 4/5 throughout LUE 3+/5 throughout, pt notes some weakness. FUNCTIONAL MOBILITY/ADLS: BATHING seated in bed with max (A) set up Bathing UE (I) Bathing LE (I) DRESSING seated in bed Dressing UE (I) Dressing LE NT GROOMING (I) with brushing her hair, AROM WFL to be (I) with oral hygiene TOILETING NT EATING sitting in bed (I) BALANCE: Static sitting Normal Dynamic Sitting Normal SPECIAL TESTS: Daily Activity Limitations Standardized Measure [facility] AM PAC ?6 clicks? Daily Activity Inpatient Short Form: Raw score: 23 Standardized score: 51.12 CMS score: 15.86% INFORMED CONSENT/EDUCATION: Pt instructed in purpose of OT Consult and plan of care. ASSESSMENT: Patient is a 87-year-old female referred to occupational therapy services with diagnosis of Thyroid nodule greater than or equal to 1.5 cm in diameter incidentally noted on imaging study (Acute) Thyroid nodule greater than or equal to 1 cm in diameter incidentally noted on imaging study (Acute), Hyponatremia (Acute), Elevated troponin level not due to acute coronary syndrome (Acute), Acute dehydration (Acute) Multiple falls (Acute), UTI (urinary tract infection) (Acute), Rhabdomyolysis (Acute), Mixed hearing loss, bilateral (Acute), Anxiety (Acute). Patient presents with clinical signs and symptoms consistent with dx, as demonstrated by the following impairment level findings: Weakness noted in her (L) UE although not limiting in her functional activities, bruising on her back which she is aware off, decreased functional activity tolerance. AMPAC score 23 Patient is assessed as a Low [id number] complexity based on the following: History: see above Examination: see functional limitations as noted above Presentation: evolving Decision Making: AMPAC score 23 GOALS Goals x1 week 1. Transfers (I) 2. Bathing standing at sink (I) PLAN OF CARE/TREATMENT PLAN: 1x/day, 3 days/ week x 1week Initiate Occupational Therapy Services for bathing, dressing, grooming, toileting, eating, transfer training. DISCHARGE RECOMMENDATIONS Home when medically cleared per MD. TREATMENT TIME/MINUTES/CODES 15494, [id number], 25 minutes (08:25) Hannah Barnes OTR/L [facility] [place], [place]
--- NOTE | 2022-09-17 09:00 | RT.EKG_ITS ---
APPROVED REPORT Exam: Resting ECG Reason for Exam: elevated troponin Patient Location: I HR:64 bpm ECG Measurements Heart Rate 64 AXIS OK 146 P 77 QRSd 80 QRS 44 QT 447 T 53 QTc 462 Conclusion Sinus rhythm...normal P axis, V-rate 50- 99 Probable left atrial enlargement...P >50mS, <-0.10mV V1
[2022-09-17 09:21] LABS: Lab Add On Test DONE
[2022-09-17 09:43] LABS: Creatine Kinase 2408 U/L (26-192)
--- NOTE | 2022-09-17 09:48 | PT.INIE ---
PT Notes Visit Reasons: Rhabdomyolysis, UTI, Dehydration Inpatient Physical Therapy Evaluation Date: 09/17/2022 Referring Doctor: Tu Vela PT Orders: PT CONSULT: limited ability Precautions: standard, fall risk Patient Profile/Admitting Diagnosis: Rhabdomyolysis, UTI, acute dehydration Rena is a pleasant 87-year-old female presenting to ED after approximately 4 days after a fall she presents with weakness and altered mental status to the ED on 09/16/2022. Prior to admission patient independent at home had started using single-point cane over the last couple of days due to unsteady on feet and difficulty getting up off the floor after putting wood in the stove. In general she does not use assistive device. She states that she feels tired and has no acute pain reported. PMHX: All Active Problems?(Updated 09/17/22 @ 04:29 by Tu Vela) Thyroid nodule greater than or equal to 1.5 cm in diameter incidentally noted on imaging study (Acute) Thyroid nodule greater than or equal to 1 cm in diameter incidentally noted on imaging study (Acute) Hyponatremia (Acute) Elevated troponin level not due to acute coronary syndrome (Acute) Acute dehydration (Acute) Multiple falls (Acute) UTI (urinary tract infection) (Acute) Rhabdomyolysis (Acute) Mixed hearing loss, bilateral (Acute) Anxiety (Acute) Essential hypertension (Chronic 05/17/13) POLST (Physician Orders for Life-Sustaining Treatment) (Acute) Hearing impairment (Acute) Medical History? Gastroesophageal reflux disease (12/18/14) Microscopic hematuria (10/22/16) Surgical History? Excision Right cheek~benign massExtraction of cataract B/L Social History/Home Situation: Patient lives alone in her home prior to admission with out assistive device. Patient has son who lives nearby but works daily. Patient independent in managing stairs and all activities of daily living prior to admission. Current Functional Limitations: Patient had started using SPC secondary to difficulty getting off the ground But otherwise does not typically use AD.. Patient is weak and fatigues easily limited tolerance to standing and decreased balance. Equipment Owned/DME: SPC, will likely need RW Subjective: I do not have any pain right now I just feel really tired I have not been able to sleep I know I should have gone to the hospital sooner and then I probably would not be in this mass Objective: General Observation: Patient is sitting up in hospital bed able to carry on full conversation she is hard of hearing and hears better out of her left ear. She is able to give general history of what brought her to the hospital. Currently she has a catheter. She has bruising in both shins and forearm she has an IV in her right arm although not hooked up at this moment. Mental Status: Alert and orientated x3 although not sure what day of the week it is once we tell her that it is Thursday she is able to describe that she has not eaten since Thursday. Pain: 0/10 Vital Signs: Monitored by nursing staff ROM: Right Upper Extremity: WFL Left Upper Extremity: WFL Right Lower Extremity: WFL Left Lower Extremity: WFL Strength: Right Upper Extremity: WFL Left Upper Extremity: WFL Right Lower Extremity: WFL Left Lower Extremity: WFL Sensation: Normal sensation to light touch Bed Mobility/Transfers: Patient able to reposition in bed although slow and difficult on the hospital bed mattress. Sit to stand hospital bed to RW supervision and verbal cueing for hand placement Stand to sit RW to hospital bed supervision and verbal cueing for hand placement Gait: Ambulate with contact-guard with RW x40 feet with decreased stride length slow gait pattern and verbal cueing to stay within the RW Balance: Static Sitting: Normal Dynamic Sitting: Normal Static Standing: Unsteady, fair able to stand on first trial times less than 5 seconds without holding onto RW, second trial 20 seconds Dynamic Standing: Poor unable to march in place without holding onto RW Special Tests: Mobility Limitations Standardized Measure [facility] AM-PAC 6 clicks Basic Mobility Inpatient Short Form: Raw Score: 19 standardized Score: [] CMS Score: 41.77 Informed Consent/Education: Patient instructed in purpose of PT consult and plan of care. Assessment: Patient is a 87year old female referred to physical therapy services with the diagnosis of rhabdomyolysis, UTI, dehydration. Patient presents with clinical signs and symptoms consistent with admission diagnosis, as demonstrated by the following impairment level findings: Limited gait, unsteady balance, decreased endurance, decreased mobility. Impairments are contributing to the following functional limitations: AMPAC score. Patient is assessed as a Low 78392 complexity based on the following: History: Lives alone, rhabdomyolysis, UTI, dehydration Examination: As outlined above Presentation: Stable Decision Making: Low Goals: Goals X1 week 1. Supine-Sit independent without VC 2. Sit-Supine independent without VC 3. Sit-Stand independent 4. Stand-Sit independent 5. Bed-Chair independent 6. Chair-Bed independent 7. Gait ambulate with least AD RW and progressed to SPC as able 8. Stairs evaluate 9. Independent with home exercise program 10. Balance good dynamic and static standing Plan of Care/Treatment Plan: Treatment: [id number] 10' sit to stand to sit to RW 3x, marching in place with CTG 5x, standing static 2x20 sec, amb with RW sup w/ v/c x40' 1-2x/day, 7 days/week x 1 week. Plan of care has been reviewed with the FILM RENTAL CLERK providing the service under Physical Therapy direction. Initiate Physical Therapy intervention for strengthening, bed mobility, transfers, gait, stairs, balance training, use of assistive device. DISCHARGE RECOMMENDATIONS: [] Home with no services [] [x] Home with services physical therapy to assess home setting and progress ambulatory and independent status Home with outpatient PT [] [] SNF for continued rehabilitation [] [] Longterm Care [] [] SNF versus LTC based on ability to participate and progress [] TREATMENT CODE/TIME:34170 , 48382 30'
--- NOTE | 2022-09-17 11:01 | INITIAL_ITS ---
- If Service Date Differs Date of service: 09/17/22 Time of Service: 11:01 Care Management Initial Assess REASON FOR HOSPITALIZATION:: URI, Rhabdomyolysis, Acute dehydration PAST MEDICAL HISTORY/PAST SURGICAL HISTORY:: All Active Problems (Updated 09/17/22 @ 04:29 by Tu Vela). Thyroid nodule greater than or equal to 1.5 cm in diameter incidentally noted on imaging study (Acute). Thyroid nodule greater than or equal to 1 cm in diameter incidentally noted on imaging study (Acute). Hyponatremia (Acute). Elevated troponin level not due to acute coronary syndrome (Acute). Acute dehydration (Acute). Multiple falls (Acute). UTI (urinary tract infection) (Acute). Rhabdomyolysis (Acute). Mixed hearing loss, bilateral (Acute). Anxiety (Acute). Essential hypertension (Chronic 05/17/13). POLST (Physician Orders for Life-Sustaining Treatment) (Acute). Hearing impairment (Acute). Medical History . Gastroesophageal reflux disease (12/18/14). Microscopic hematuria (10/22/16). Surgical History . Excision. Right cheek~benign mass. Extraction of cataract. B/L PREVIOUS FUNCTIONAL STATUS/SOCIAL/FAMILY SUPPORTS:: Gabi is and lives alone in [place], [place]. She has a supportive family, which live locally. Gabi drives and is fully active and independent with her ADL's and within the community at baseline. Up until 4 days ago Gabi reports that she was able to shovel snow and fill her wood stove. She also enjoys cooking and working around her yard. CURRENT FUNCTIONAL STATUS:: Gabi was lying in bed visiting with her daughter Kirstin when CM met with her. She is awake and easily engages in conversation. Gabi enjoys her independence and speaks fondly on her ability to man the stove and shovel her yard. She does quite well living alone, up until about 4 days ago she fell filling her stove. ADVANCE DIRECTIVES:: None on file Has patient been provided with info about the portal/API?: Yes Did the patient sign up for the portal?: No CODE STATUS:: DNR/DNI (COLST on file) INSURANCE COVERAGE / FINANCIAL ISSUES:: Medicare CURRENT HOME/COMMUNITY SERVICES/EQUIPMENT:: Recently started using a walking stick. PRIMARY CARE PHYSICIAN:: [facility] POTENTIAL DISCHARGE NEEDS:: Evaluation for increased community support, discharge plan of care. PATIENT/FAMILY EDUCATION NEEDS:: Review discharge instructions, limitations, medications and plan to follow up with community providers. Discuss ask me three. TRANSPORTATION:: Via private vehicle with family. PLAN:: Anticipate, Gabi will discharge home with [facility] RN/PT (if indicated) via private vehicle with family. She will follow up with community providers and discharge plan of care as prescribed. Gabi declines a referral to [facility] and [facility].
--- NOTE | 2022-09-17 14:50 | PT.INNT ---
Date of service: 09/17/22 Time of Service: 15:03 PT Notes Visit Reasons: Rhabdomyolysis, UTI, Dehydration 09/17/2022 Met at the door by the patient's daughter who requested to hold PT session this afternoon, as she feels the patient is too tired and reports that the patient is upset that she has not been able to sleep. Nursing made aware. Will attempt to resume PT services tomorrow morning.
[2022-09-17] MEDS: Lactated Ringers 1,000 ML 100 ML IV (15:20)
--- NOTE | 2022-09-17 16:56 | W.PM.PROGNOT ---
Date of Service Date of service: 09/17/22 Time of Service: 16:56 Assessment and Plan Assessment and plan (1) Sepsis: Status: Acute Assessment and plan: Due to UTI, present on admission. Obtained blood cultures due to persistent fever. Obtain US renal. Continue empiric ceftriaxone. Prior cx data w/ mixed gram positive beverly. (2) UTI (urinary tract infection): Start date: 09/16/22 Status: Acute Assessment and plan: As above (3) Rhabdomyolysis: Start date: 09/16/22 Status: Acute Assessment and plan: In setting of immobilty. Continue IVF. Trend CPK. (4) Acute dehydration: Start date: 09/16/22 Status: Acute Assessment and plan: Continue IVF overnight, carefully monitoring volume status. (5) Elevated troponin level not due to acute coronary syndrome: Start date: 09/16/22 Status: Acute Assessment and plan: Suspect this is due to rhabdomyolysis. No clinical sx of ACS. Echo w/o wall motion abnormalities. Can pursue stress testing as outpatient. Does not require telemetry at this time. (6) Multiple falls: Start date: 09/16/22 Status: Acute Assessment and plan: PT consulted. (7) Hyponatremia: Start date: 09/16/22 Status: Acute Assessment and plan: Improving with IV hydration. Continue to trend. (8) Essential hypertension: Status: Chronic Assessment and plan: Continue to hold atenolol and lisinopril. (9) Thyroid nodule greater than or equal to 1 cm in diameter incidentally noted on imaging study: Start date: 09/16/22 Status: Acute Assessment and plan: Incidental finding on CT - obtain outpatient ultrasound. (10) DVT prophylaxis: Status: Acute Assessment and plan: SC heparin (11) Discharge planning issues: Status: Acute Assessment and plan: DNR/DNI PT consulted Palliative care consulted. Subjective Subjective Interval history since last seen: Ms Whiting states she is feeling better. She describes suprapubic discomfort like a urinary tract infection. She has a good appetite today and that's an improvement. Denies dizziness, chest pain, shortness of breath, nausea. Exam Narrative Exam Narrative: General: Pleasant frail elderly female who is A&Ox3, DEERING, appears tired HEENT: EOMI, MMM Heart: RRR, mildly tachycardic Lungs: CTAB Abdomen: soft, nontender, nondistended Extremities: no edema BLEs Objective Last Vital Signs Temp 38.2 C H 09/17/22 15:18 Pulse 89 09/17/22 15:18 Resp 16 09/17/22 15:18 BP 121/64 09/17/22 15:18 Pulse Ox 96 09/17/22 15:18 Laboratory Results - last 24 hr 09/16/22 09/16/22 09/16/22 20:20 20:20 20:20 WBC RBC Hgb Hct MCV MCH MCHC RDW Plt Count MPV Immature Gran % Neutrophils % Lymphocytes % Monocytes % Eosinophils % Basophils % Nucleated RBC % Absolute Neutrophils Absolute Lymphocytes Absolute Monocytes Absolute Eosinophils Absolute Basophils RBC Morphology VBG pH 7.45 H VBG pCO2 29 L VBG pO2 101 VBG HCO3 21 L VBG Total CO2 18 L VBG O2 Saturation 98 VBG Base Excess -4 L VBG Lactate Sodium 130 L Potassium 4.0 Chloride 97 L Carbon Dioxide 21.0 Anion Gap 12.0 H BUN 39 H Creatinine 1.3 H Est GFR (CKD-EPI 2020) 40.30 Glucose 153 H Calcium 9.4 Magnesium Total Bilirubin 1.1 H AST 164 H ALT 74 H Alkaline Phosphatase 81 Creatine Kinase 5320 H Troponin I 565 H* Total Protein 7.0 Albumin 3.4 TSH 1.02 Urine Color Urine Clarity Urine pH Ur Specific [place] Urine Protein Urine Ketones Urine Blood Urine Nitrite Urine Bilirubin Urine Urobilinogen Ur Leukocyte Esterase Urine RBC Urine WBC Ur Epithelial Cells Urine Crystals Urine Bacteria Urine Casts Urine Mucus Urine Other Ur Culture Indicated? Urine Glucose COVID-19 Source SARS-CoV-2 (PCR) Add-On Test Request 09/16/22 09/16/22 09/16/22 20:20 20:20 20:30 WBC RBC Hgb Hct MCV MCH MCHC RDW Plt Count MPV Immature Gran % Neutrophils % Lymphocytes % Monocytes % Eosinophils % Basophils % Nucleated RBC % Absolute Neutrophils Absolute Lymphocytes Absolute Monocytes Absolute Eosinophils Absolute Basophils RBC Morphology VBG pH VBG pCO2 VBG pO2 VBG HCO3 VBG Total CO2 VBG O2 Saturation VBG Base Excess VBG Lactate 1.0 Sodium Potassium Chloride Carbon Dioxide Anion Gap BUN Creatinine Est GFR (CKD-EPI 2020) Glucose Calcium Magnesium 2.0 Total Bilirubin AST ALT Alkaline Phosphatase Creatine Kinase Troponin I Total Protein Albumin TSH Urine Color Urine Clarity Urine pH Ur Specific [place] Urine Protein Urine Ketones Urine Blood Urine Nitrite Urine Bilirubin Urine Urobilinogen Ur Leukocyte Esterase Urine RBC Urine WBC Ur Epithelial Cells Urine Crystals Urine Bacteria Urine Casts Urine Mucus Urine Other Ur Culture Indicated? Urine Glucose COVID-19 Source Nasal/Nares SARS-CoV-2 (PCR) Negative Add-On Test Request 09/16/22 09/16/22 09/16/22 20:30 21:40 23:25 WBC 23.73 H RBC 3.96 Hgb 12.7 Hct 35.5 L MCV 90 MCH 32.1 MCHC 35.8 RDW 12.7 Plt Count 260 MPV 9.5 Immature Gran % 0.7 Neutrophils % 81.2 Lymphocytes % 5.8 Monocytes % 12.1 Eosinophils % 0.0 Basophils % 0.2 Nucleated RBC % 0.0 Absolute Neutrophils 19.27 H Absolute Lymphocytes 1.38 Absolute Monocytes 2.87 H Absolute Eosinophils 0.00 Absolute Basophils 0.05 RBC Morphology Normal VBG pH VBG pCO2 VBG pO2 VBG HCO3 VBG Total CO2 VBG O2 Saturation VBG Base Excess VBG Lactate Sodium Potassium Chloride Carbon Dioxide Anion Gap BUN Creatinine Est GFR (CKD-EPI 2020) Glucose Calcium Magnesium Total Bilirubin AST ALT Alkaline Phosphatase Creatine Kinase Troponin I 427 H* Total Protein Albumin TSH Urine Color Yellow Urine Clarity Clear Urine pH 5.5 Ur Specific [place] 1.025 Urine Protein >=300 H Urine Ketones 40 H Urine Blood Large H Urine Nitrite Positive H Urine Bilirubin Negative Urine Urobilinogen 0.2 Ur Leukocyte Esterase Small H Urine RBC 20-50 H Urine WBC 20-50 H Ur Epithelial Cells Few Urine Crystals Negative Urine Bacteria Many Urine Casts Negative Urine Mucus Negative Urine Other Negative Ur Culture Indicated? Yes Urine Glucose Negative COVID-19 Source SARS-CoV-2 (PCR) Add-On Test Request 09/17/22 09/17/22 09/17/22 05:50 05:50 05:50 WBC 19.65 H RBC 3.43 L Hgb 10.8 L Hct 31.2 L MCV 91 MCH 31.5 MCHC 34.6 RDW 13.0 Plt Count 217 MPV 9.2 Immature Gran % Neutrophils % Lymphocytes % Monocytes % Eosinophils % Basophils % Nucleated RBC % Absolute Neutrophils Absolute Lymphocytes Absolute Monocytes Absolute Eosinophils Absolute Basophils RBC Morphology VBG pH VBG pCO2 VBG pO2 VBG HCO3 VBG Total CO2 VBG O2 Saturation VBG Base Excess VBG Lactate Sodium 133 L Potassium 3.5 Chloride 102 Carbon Dioxide 20.6 L Anion Gap 10.4 BUN 33 H Creatinine 1.2 H Est GFR (CKD-EPI 2020) 44.36 Glucose 118 H Calcium 8.2 L Magnesium 1.8 Total Bilirubin 0.7 AST 99 H ALT 58 Alkaline Phosphatase 70 Creatine Kinase Troponin I 353 H* Total Protein 5.5 L Albumin 2.4 L TSH Urine Color Urine Clarity Urine pH Ur Specific [place] Urine Protein Urine Ketones Urine Blood Urine Nitrite Urine Bilirubin Urine Urobilinogen Ur Leukocyte Esterase Urine RBC Urine WBC Ur Epithelial Cells Urine Crystals Urine Bacteria Urine Casts Urine Mucus Urine Other Ur Culture Indicated? Urine Glucose COVID-19 Source SARS-CoV-2 (PCR) Add-On Test Request DONE 09/17/22 09/17/22 05:50 10:00 WBC RBC Hgb Hct MCV MCH MCHC RDW Plt Count MPV Immature Gran % Neutrophils % Lymphocytes % Monocytes % Eosinophils % Basophils % Nucleated RBC % Absolute Neutrophils Absolute Lymphocytes Absolute Monocytes Absolute Eosinophils Absolute Basophils RBC Morphology VBG pH VBG pCO2 VBG pO2 VBG HCO3 VBG Total CO2 VBG O2 Saturation VBG Base Excess VBG Lactate Sodium Potassium Chloride Carbon Dioxide Anion Gap BUN Creatinine Est GFR (CKD-EPI 2020) Glucose Calcium Magnesium Total Bilirubin AST ALT Alkaline Phosphatase Creatine Kinase 2408 H Troponin I Cancelled Total Protein Albumin TSH Urine Color Urine Clarity Urine pH Ur Specific [place] Urine Protein Urine Ketones Urine Blood Urine Nitrite Urine Bilirubin Urine Urobilinogen Ur Leukocyte Esterase Urine RBC Urine WBC Ur Epithelial Cells Urine Crystals Urine Bacteria Urine Casts Urine Mucus Urine Other Ur Culture Indicated? Urine Glucose COVID-19 Source SARS-CoV-2 (PCR) Add-On Test Request Objective Narrative Objective Narrative: Echo: LV is normal size. Wall thickness is normal. LVEF is estimated visually at 60%. There are no segmental wall motion abnormalities. The aortic valve appears trileaflet with thickening of all cusps. There is moderate aortic regurgitation and no significant stenosis. There is mild mitral regurgitation. The peak right ventricular systolic pressure is 40 mgHg. Time Spent with Patient Time Spent with Patient: 35-49 minutes Time was spent: preparing to see the patient(eg.review tests), obtaining and/or reviewing separately otained hiistory, ordering medications,tests, procedures, referring, communicating with other health patient care technician instructor, indepentently interpreting results, counseling the patient and care coordination
[2022-09-17] MEDS: cefTRIAXone 2 GM/50 ML BAG IVPB (21:15)
[2022-09-18] MEDS: Lactated Ringers 1,000 ML 100 ML IV (02:39)
[2022-09-18 03:57] VITALS: BP 140/75; PULSE 75; RESP 16; TEMP 36.7; O2SAT 96
[2022-09-18] MEDS: Heparin 5,000 UNITS/ML VIAL 5000 UNITS SC ×3 (05:33→22:33)
[2022-09-18 06:04] LABS: Absolute Basophil Count 0.03 10^3/uL (0.0-0.2); Absolute Lymphocyte Count 1.21 10^3/uL (1.2-3.4); Absolute Monocyte Count 1.71 10^3/uL (0.1-0.8); Absolute Neutrophil Count 13.55 10^3/uL (1.2-6.7); Basophils % 0.2; HCT 30.8 % (36.0-46.0); HGB 10.6 g/dL (11.2-15.7); Immature Grans % 0.6; Lymphocytes % 7.3; MCH 31.2 pg (27.0-33.0); MCHC 34.4 % (32.0-36.0); MCV 91 fL (80-95); MPV 9.2 fL (8.0-11.0); Monocytes % 10.3; Neutrophils % 81.6; Platelet Count 217 10^3/uL (130-400); RDW-SD 42.8 fL
[2022-09-18 06:22] LABS: ALT 60 U/L (14-59); AST 68 U/L (15-37); Albumin 2.2 g/dL (3.4-5.0); Alkaline Phosphatase 78 U/L (46-116); Anion Gap 10.4 mmol/L (3-11); BUN 27 mg/dL (7-18); Bilirubin, Direct 0.1 mg/dL (0.0-0.2); Bilirubin, Total 0.3 mg/dL (0.2-1.0); CO2 21.6 mmol/L (21.0-32.0); CREATININE 1.3 mg/dL (0.55-1.02); Calcium 8.3 mg/dL (8.5-10.1); Chloride 105 mmol/L (98-107); Creatine Kinase 981 U/L (26-192); Glucose 127 mg/dL (74-106); Magnesium 1.8 mg/dL (1.8-2.4); Potassium 3.7 mmol/L (3.5-5.1); Sodium 137 mmol/L (136-145); Total Protein 5.4 g/dL (6.4-8.2)
[2022-09-18 06:23] LABS: Diff Comment Agrees w/ Instrument; RBC Morphology Normal
[2022-09-18 07:29] VITALS: BP 145/73; PULSE 76; RESP 16; TEMP 37.3; O2SAT 96
--- NOTE | 2022-09-18 08:00 | DI.US_ITS ---
Exam(s) US RENAL EXAM: US RENAL CLINICAL HISTORY: UTI. TECHNIQUE: Miller scale, color and spectral Doppler were used. COMPARISON: None. FINDINGS: Renal size in cm: Right: 9.6. Left: 11.2. Echogenicity: Normal. Hydronephrosis: No. Cyst or mass: No. Nephrolithiasis: No. Other findings: None. Bladder:Cannot be evaluated. The patient has a John catheter in place. Renal color flow: Symmetric and within normal limits. IMPRESSION: 1. Unremarkable examination. 2. The urinary bladder cannot be evaluated. The bladder is decompressed and the patient has a John catheter in place. DATA REPOSITORY:
[2022-09-18] MEDS: Aspirin 81 MG CHEW PO (08:06)
[2022-09-18 08:38] LABS: Lab Add On Test DONE
[2022-09-18 08:59] LABS: NT-proBNP 4014 pg/mL (<300)
[2022-09-18 09:02] LABS: Troponin I 133 ng/L (<or=60)
--- NOTE | 2022-09-18 10:35 | PT.INTREAT ---
Date of service: 09/18/22 Time of Service: 10:05 PT Notes Visit Reasons: Rhabdomyolysis, UTI, Dehydration Inpatient Physical Therapy Treatment Note [facility] Date: 09/18/2022 PRECAUTIONS: Fall, activity as tolerated SUBJECTIVE: Gabi is pleasant and agreeable to participating in PT this morning. She reports that she is feeling much better today, although states that she did not get much rest last night. She also reports that she is feeling somewhat weaker than her baseline. OBJECTIVE: PAIN: No c/o pain BED MOBILITY/TRANSFERS Sit-stand: SBA Stand-sit: SBA GAIT Assistive Device: No AD FWW Weight bearing: Full Assist: CGA Distance: 75' without AD + 125' with SPC in a.m.; 200' in p.m. Deviation: Slow pacing and short step height/length, somewhat unsteady, mild path deviation THEREX: Patient was instructed in a LE strengthening program, completed in a seated position, to include: ankle pumps, heel raises, LAQ and hip flexion. In a.m., patient was instructed in functional [id number], standing hip extension, hip flexion and heel raises, as well as functional step-ups to 4 step. STAIRS: Up/down 3x4 and 2x6 using B rails and a step-to pattern with SBA ASSESSMENT: Patient tolerated session well, without complaint. She was able to tolerate a progression in gait distance, although demonstrates unsteady gait without assistive device support due to weakness. PLAN: Continue with global strengthening, as well as gait and transfer training for improved safety with mobility TREATMENT CODE/TIME: Session 1: 25 minutes; 10247 x2 (10:05) Session 2: 28 minutes; 25187, 94708 (14:35)
[2022-09-18 11:25] VITALS: BP 144/76; PULSE 76; RESP 16; TEMP 36.5; O2SAT 98
--- NOTE | 2022-09-18 14:59 | PDOC.CMPRO ---
- If Service Date Differs Date of service: 09/18/22 Time of Service: 14:59 Care Management Progress Note S/O: Gabi was lying in bed, reported being tired; no needs noted. She did meet with Dr. Hernández of Palliative Care and completed a COLST. CM continues to follow. A: 87 year old female admitted 09/16/22 for Rhabdomyolysis, UTI, Dehydration P: Gabi will discharge home with [facility] RN/PT (if indicated) via private vehicle with family. She will follow up with community providers and discharge plan of care as prescribed. Gabi declines a referral to [facility] and [facility].
--- NOTE | 2022-09-18 15:03 | W.PALLCONSUL ---
Date of service: 09/18/22 Time of Service: 15:03 History of Present Illness Narrative: Gabi Whiting is an 87-year-old woman from [facility] who was admitted to the hospital 3 days ago after a fall at home resulting in rhabdomyolysis and developing a UTI. Previous medical problems include hypertension and hearing impairment. Palliative care team has been asked to see her to review goals of care and offer additional support. Patient seen today with her daughter Kirstin in the room. Patient reports that 3 to 4 days prior to admission she began feeling increasingly weak in her legs, had increasing difficulty walking. Today she cannot recall having had a fall but her daughter says she had reported a fall to them with a few small bruises on her knees and the backs of her legs. PCP has listed history of frequent falls on problem list but patient denied. Patient and daughter tell me her blood pressure is always high in the doctor's office. She does not check blood pressure at home. She and her daughter cannot recall her having orthostatic symptoms at home. Looking at clinic blood pressure readings, they vary between being elevated and being in normal range. Her blood pressure medicines have been held during hospital admission because of rhabdomyolysis and reduced kidney function from baseline. Care Team: Primary Care physician: Olimpia Montez Audiology/ENT: [facility] office Social HX: Lives alone in house in [facility]. Heats her home with wood, stacks her own wood (has backup boiler), shovels her own snow. 3 children all live nearby, 1 son next-door. They check in on her frequently and help with shopping and other tasks. 4 grandchildren and several great-grandchildren. She drives short distances when weather is good and she is feeling strong. Additional support services:None Impression of currents health status:My health was pretty good before now What bothers you the most:Leg weakness so that she cannot walk as much as she usually does. What worries you the most:NOTHING Function: Ambulation: Previously ambulated without assist. PT has her using a walker ADLs: Completely independent. iADLs: Occasional assistance with shopping and driving from family but can do on her own. Otherwise completely independent. I did not query financial planner. Hearing: Has hearing aids but does not use them. Vision: Okay as per patient. Palliative Performance Scale % Ambulation Activity and Evidence of Disease Self Care Intake Level of Consciousness 100 Full Normal activity, no evidence of disease Full Normal Full 90 Full Normal activity, some evidence of disease Full Normal Full 80 Full Normal activity with effort, some evidence of disease Full Normal or reduced Full 70 Reduced Unable to do normal work, some evidence of disease Full Normal or reduced Full 60 Reduced Unable to do hobby or some housework, significant disease Occasional assist necessary Normal or reduced Full or confusion 50 Mainly sit/lie Unable to do any work, extensive disease Considerable assistance required Normal or reduced Full or confusion 40 Mainly in bed Unable to do any work, extensive disease Mainly assistance Normal or reduced Full, drowsy, or confusion 30 Totally bed bound Unable to do any work, extensive disease Total care Reduced Full, drowsy, or confusion 20 Totally bed bound Unable to do any work, extensive disease Total care Minimal sips Full, drowsy, or confusion 10 Totally bed bound Unable to do any work, extensive disease Total care Mouth care only Drowsy or coma 0 - - - - Patient Score: Prior to admission PPS 90. Spiritual history: Does not attend mormon. Palliative review of systems: Pain: Denies Dyspnea: Denies GI symptoms: Finally had a bowel movement today. Denies nausea or vomiting Appetite: Improving, reports weight stable over the last year Depression: Denies Anxiety: None Sleep: Reports trouble sleeping since her . Difficult to get more thorough history. Sounds like she gets up once or twice a night but is able to fall back to sleep. Advanced Care Planning: Advanced Directive: None on file Health Care Agent: Kirstin Whiting, daughter COLST: 2019 COLST reviewed. DNR/DNI, transfer treat, comfort measures only . Limitations: Assessment and Plan Assessment and plan (1) Palliative care encounter: Status: Acute (2) Advanced care planning/counseling discussion: Status: Acute Assessment and plan: Note in [facility] system that patient met with palliative care nurse practitioner Corinne Simeon in 2019. At that time she wanted to be DNI DNR. She said at that time she would not want to go to the hospital for treatment as she definitely would not want a feeding tube. COLST reviewed today. Although trial of antibiotics and IV hydration is checked, comfort measures only is also checked. I asked patient if she was glad she came to the hospital and got treated. She said she was. She would like to to be treated in the hospital with antibiotics and fluids if she could be come well enough to go home. She was very concerned that I was going to cancel her DNI/DNR order. I reassured her that this would stand. We discussed scenarios such as appendicitis. She would agree to surgery only if there was a very high chance that she could return to her previous level of functioning and living independently. At this point she became very tired and requested that we not discuss advanced care planning further. New COLST was written up confimring previous wishes (DNR/DNI, trial of antibiotics and IV hydration if indicated. No feeding tube, avoid invasive interventions, no ICU, no pressors). The one adjustment was to switch from comfort measures only to avoid invasive interventions. Patient then stated that I do not want to discuss this any further . Based on this palliative care team will not schedule routine follow-up with her. However we are happy to see her upon request at any time. (3) Multiple falls: Status: Acute Assessment and plan: Consider possibility of whitecoat hypertension at PCP office. This could have contributed to falls. Suggest reducing hypertension med doses if and when blood pressure medicine indicated. I spoke with daughter Kirstin about getting home blood pressure monitor. (4) UTI (urinary tract infection): Status: Acute (5) Rhabdomyolysis: Status: Acute (6) Elevated serum creatinine: Status: Acute PFSH All Active Problems Elevated serum creatinine (Acute) Advanced care planning/counseling discussion (Acute) Palliative care encounter (Acute) Discharge planning issues (Acute) DVT prophylaxis (Acute) Sepsis (Acute) Thyroid nodule greater than or equal to 1.5 cm in diameter incidentally noted on imaging study (Acute) Thyroid nodule greater than or equal to 1 cm in diameter incidentally noted on imaging study (Acute) Hyponatremia (Acute) Elevated troponin level not due to acute coronary syndrome (Acute) Acute dehydration (Acute) Multiple falls (Acute) UTI (urinary tract infection) (Acute) Rhabdomyolysis (Acute) Mixed hearing loss, bilateral (Acute) Anxiety (Acute) Essential hypertension (Chronic 05/17/13) POLST (Physician Orders for Life-Sustaining Treatment) (Acute) Hearing impairment (Acute) Medical History Gastroesophageal reflux disease (12/18/14) Microscopic hematuria (10/22/16) Surgical History Excision Right cheek~benign mass Extraction of cataract B/L Family History Mother , 96 Heart disease Neoplasm Father , 78 Essential hypertension Heart disease Colon cancer Sister , 50 Cancer Brother , DROWNED at age 39. No problems noted. Sister Breast cancer Son No problems noted. Son No problems noted. Daughter No problems noted. Maternal Grandfather , 48 No problems noted. Paternal Grandfather , 84 No problems noted. Maternal Grandmother , 84 No problems noted. Paternal Grandmother , 74 No problems noted. Social History Smoking/Tobacco Use Status: Never Second Hand Exposure: No Smoking risk assessment performed?: Yes Alcohol Intake: never Drug use: Never Substance use type: does not use Household members: none Housing: house Number of Children: 3 Communication Needs: Hard of Hearing and Corrective Lenses Do you need help understanding health information?: Never Pets and animals: No Sexually active: No Do you think of yourself as: straight/heterosexual Current gender identity: female What is your relationship status?: How often do you talk on the phone with friends or family?: three or more times per week Do you belong to any clubs or organized social groups?: no Panel score (0-1 are the most socially isolated patients): 1 What type of physical activity do you participate in: walking Marylin/Orthodox: No preference Drive intox or ride w/intox road train driver: No Exam Narrative Exam Narrative: Thin elderly woman sitting in a chair. Talkative and vibrant. Moderate to severely hard of hearing. Able to understand when spoken into her left ear. Color is good. Results Last Vital Signs Temp 36.5 C 09/18/22 11:25 Pulse 76 09/18/22 11:25 Resp 16 09/18/22 11:25 BP 144/76 H 09/18/22 11:25 Pulse Ox 98 09/18/22 11:25 Labs 09/18/22 05:50 09/18/22 05:50 Labs: Laboratory Results - last 24 hr 09/18/22 09/18/22 09/18/22 05:50 05:50 05:50 WBC 16.60 H RBC 3.40 L Hgb 10.6 L Hct 30.8 L MCV 91 MCH 31.2 MCHC 34.4 RDW 13.0 Plt Count 217 MPV 9.2 Immature Gran % 0.6 Neutrophils % 81.6 Lymphocytes % 7.3 Monocytes % 10.3 Eosinophils % 0.0 Basophils % 0.2 Nucleated RBC % 0.0 Absolute Neutrophils 13.55 H Absolute Lymphocytes 1.21 Absolute Monocytes 1.71 H Absolute Eosinophils 0.00 Absolute Basophils 0.03 RBC Morphology Normal Sodium 137 Potassium 3.7 Chloride 105 Carbon Dioxide 21.6 Anion Gap 10.4 BUN 27 H Creatinine 1.3 H Est GFR (CKD-EPI 2020) 40.30 Glucose 127 H Calcium 8.3 L Magnesium 1.8 Total Bilirubin 0.3 Conjugated Bilirubin 0.1 AST 68 H ALT 60 H Alkaline Phosphatase 78 Creatine Kinase 981 H Troponin I NT-Pro-B Natriuret Pep Total Protein 5.4 L Albumin 2.2 L Add-On Test Request DONE 09/18/22 05:50 WBC RBC Hgb Hct MCV MCH MCHC RDW Plt Count MPV Immature Gran % Neutrophils % Lymphocytes % Monocytes % Eosinophils % Basophils % Nucleated RBC % Absolute Neutrophils Absolute Lymphocytes Absolute Monocytes Absolute Eosinophils Absolute Basophils RBC Morphology Sodium Potassium Chloride Carbon Dioxide Anion Gap BUN Creatinine Est GFR (CKD-EPI 2020) Glucose Calcium Magnesium Total Bilirubin Conjugated Bilirubin AST ALT Alkaline Phosphatase Creatine Kinase Troponin I 133 H* NT-Pro-B Natriuret Pep 4014 H Total Protein Albumin Add-On Test Request
--- NOTE | 2022-09-18 15:41 | W.PM.PROGNOT ---
Date of Service Date of service: 09/18/22 Time of Service: 15:41 Assessment and Plan Assessment and plan (1) Sepsis: Status: Acute Assessment and plan: Due to UTI, present on admission. Obtained blood cultures due to persistent fever. Repeat cultures from 09/17/2022 are pending. WBCs still elevated at 16,000 but trending down Renal sound was unremarkable Continue empiric ceftriaxone. Prior cx data w/ mixed gram positive beverly. (2) UTI (urinary tract infection): Start date: 09/16/22 Status: Acute Assessment and plan: As above (3) Rhabdomyolysis: Start date: 09/16/22 Status: Acute Assessment and plan: Rhabdomyolysis is resolving CK is now down to 981. IV fluids have been discontinued (4) Acute dehydration: Start date: 09/16/22 Status: Resolved Assessment and plan: Patient is now tolerating oral diet quite well IV fluids have been discontinued. (5) Elevated troponin level not due to acute coronary syndrome: Start date: 09/16/22 Status: Acute Assessment and plan: Suspect this is due to rhabdomyolysis. No clinical sx of ACS. Echo w/o wall motion abnormalities. LVEF 60% stable moderate aortic regurgitation and mild mitral regurgitation. Can pursue stress testing as outpatient. Does not require telemetry at this time. (6) Multiple falls: Start date: 09/16/22 Status: Acute Assessment and plan: PT consulted. (7) Hyponatremia: Start date: 09/16/22 Status: Resolved Assessment and plan: Discontinue IV fluids (8) Essential hypertension: Status: Chronic Assessment and plan: Atenolol and lisinopril remain on hold. We will continue to hold lisinopril in the setting of acute kidney injury Will resume her atenolol in the morning. (9) Thyroid nodule greater than or equal to 1 cm in diameter incidentally noted on imaging study: Start date: 09/16/22 Status: Acute Assessment and plan: Incidental finding on CT - obtain outpatient ultrasound. (10) DVT prophylaxis: Status: Acute Assessment and plan: SC heparin (11) Discharge planning issues: Status: Acute Assessment and plan: DNR/DNI PT consulted Palliative care consulted. Subjective Subjective Interval history since last seen: Gabi is feeling better she denies any fever or chills no rigors and no abdominal pain or nausea or vomiting. She had a good bowel movement today. Her only complaint is she was upset by the palliative care physician who reviewed her C.O.L.S.T. form. Dr. Hernández updated the COLST to reflect that the patient indeed wants treatments and to be brought to the hospital but just does not want heroics including life support/CPR or intubation. I went over the patients labs and workup w/ her and her daughter, Kirstin, who works in the cafeteria Exam Narrative Exam Narrative: Elderly female sitting up in her chair talking with her family no acute distress. Lungs are clear to auscultation Heart is regular rate and rhythm Abdomen soft nontender nondistended No flank tenderness Lower extremities without edema Objective Last Vital Signs Temp 36.5 C 09/18/22 11:25 Pulse 76 09/18/22 11:25 Resp 16 09/18/22 11:25 BP 144/76 H 09/18/22 11:25 Pulse Ox 98 09/18/22 11:25 Laboratory Results - last 24 hr 09/18/22 09/18/22 09/18/22 05:50 05:50 05:50 WBC 16.60 H RBC 3.40 L Hgb 10.6 L Hct 30.8 L MCV 91 MCH 31.2 MCHC 34.4 RDW 13.0 Plt Count 217 MPV 9.2 Immature Gran % 0.6 Neutrophils % 81.6 Lymphocytes % 7.3 Monocytes % 10.3 Eosinophils % 0.0 Basophils % 0.2 Nucleated RBC % 0.0 Absolute Neutrophils 13.55 H Absolute Lymphocytes 1.21 Absolute Monocytes 1.71 H Absolute Eosinophils 0.00 Absolute Basophils 0.03 RBC Morphology Normal Sodium 137 Potassium 3.7 Chloride 105 Carbon Dioxide 21.6 Anion Gap 10.4 BUN 27 H Creatinine 1.3 H Est GFR (CKD-EPI 2020) 40.30 Glucose 127 H Calcium 8.3 L Magnesium 1.8 Total Bilirubin 0.3 Conjugated Bilirubin 0.1 AST 68 H ALT 60 H Alkaline Phosphatase 78 Creatine Kinase 981 H Troponin I NT-Pro-B Natriuret Pep Total Protein 5.4 L Albumin 2.2 L Add-On Test Request DONE 09/18/22 05:50 WBC RBC Hgb Hct MCV MCH MCHC RDW Plt Count MPV Immature Gran % Neutrophils % Lymphocytes % Monocytes % Eosinophils % Basophils % Nucleated RBC % Absolute Neutrophils Absolute Lymphocytes Absolute Monocytes Absolute Eosinophils Absolute Basophils RBC Morphology Sodium Potassium Chloride Carbon Dioxide Anion Gap BUN Creatinine Est GFR (CKD-EPI 2020) Glucose Calcium Magnesium Total Bilirubin Conjugated Bilirubin AST ALT Alkaline Phosphatase Creatine Kinase Troponin I 133 H* NT-Pro-B Natriuret Pep 4014 H Total Protein Albumin Add-On Test Request Time Spent with Patient Time Spent with Patient: 25-34 minutes Time was spent: preparing to see the patient(eg.review tests), obtaining and/or reviewing separately otained hiistory, ordering medications,tests, procedures, indepentently interpreting results, counseling the patient and care coordination
[2022-09-18 16:12] VITALS: BP 167/83; PULSE 84; RESP 17; TEMP 37; O2SAT 98
[2022-09-18 19:28] VITALS: BP 148/76; PULSE 79; RESP 14; TEMP 37.3; O2SAT 97
[2022-09-18] MEDS: cefTRIAXone 2 GM/50 ML BAG IVPB (22:33)
[2022-09-18 22:59] VITALS: BP 132/75; PULSE 78; RESP 14; TEMP 37; O2SAT 96
[2022-09-19 02:50] VITALS: BP 151/78; PULSE 77; RESP 14; TEMP 36.8; O2SAT 99
[2022-09-19 06:44] LABS: Abs Immature Grans 0.06 10^3/uL (0.0-0.06); Absolute Basophil Count 0.05 10^3/uL (0.0-0.2); Absolute Monocyte Count 1.23 10^3/uL (0.1-0.8); Basophils % 0.4; Eosinophils % 0.3; HCT 31.9 % (36.0-46.0); HGB 10.9 g/dL (11.2-15.7); Immature Grans % 0.5; Lymphocytes % 11.6; MCH 31.3 pg (27.0-33.0); MCHC 34.2 % (32.0-36.0); MCV 92 fL (80-95); MPV 9.3 fL (8.0-11.0); Monocytes % 10.6; Neutrophils % 76.6; Platelet Count 257 10^3/uL (130-400); RBC 3.48 10^6/uL (3.93-5.22); RDW-SD 43.5 fL
[2022-09-19] MEDS: Heparin 5,000 UNITS/ML VIAL 5000 UNITS SC (06:47)
[2022-09-19 06:49] LABS: Absolute Eosinophil Count 0.03 10^3/uL (0.0-0.7); Absolute Lymphocyte Count 1.35 10^3/uL (1.2-3.4); Absolute Neutrophil Count 8.89 10^3/uL (1.2-6.7)
[2022-09-19 07:18] LABS: Anion Gap 8.3 mmol/L (3-11); BUN 24 mg/dL (7-18); CO2 23.7 mmol/L (21.0-32.0); CREATININE 1.1 mg/dL (0.55-1.02); Calcium 8.7 mg/dL (8.5-10.1); Chloride 105 mmol/L (98-107); Creatine Kinase 446 U/L (26-192); Estimated GFR 49.24 (mL/min/1.73m2); Glucose 104 mg/dL (74-106); Potassium 3.5 mmol/L (3.5-5.1); Sodium 137 mmol/L (136-145)
[2022-09-19 07:32] LABS: Procalcitonin 0.4 ng/mL
[2022-09-19] MEDS: Atenolol 25 MG TAB PO (07:38)
[2022-09-19] MEDS: Aspirin 81 MG CHEW PO (07:38)
[2022-09-19 08:38] VITALS: BP 162/79; PULSE 71; RESP 16; TEMP 36.3; O2SAT 97
[2022-09-19 12:06] VITALS: BP 148/81; PULSE 67; RESP 16; TEMP 36.9; O2SAT 99
--- NOTE | 2022-09-19 13:50 | PT.INTREAT ---
Date of service: 09/19/22 Time of Service: 08:45 PT Notes Visit Reasons: Rhabdomyolysis, UTI, Dehydration Inpatient Physical Therapy Treatment Note [facility] Date: 09/19/2022 PRECAUTIONS: Fall, activity as tolerated SUBJECTIVE: Gabi is pleasant and agreeable to participating in PT this morning. She reports that she is feeling much better today. She agrees that she would benefit from use of FWW at home for increased stability with ambulation. OBJECTIVE: Issued and fit FWW to patient and completed [facility] form which was submitted to Care Management. PAIN: No c/o pain BED MOBILITY/TRANSFERS Sit-stand: SBA Stand-sit: SBA GAIT Assistive Device: No AD FWW Weight bearing: Full Assist: CGA with No AD Supervision with FWW Distance: 300' in a.m.; 600' in p.m. Deviation: Slow pacing and short step height/length, somewhat unsteady, mild path deviation without FWW; improved stability, improved gait and pacing with FWW support NEURO RE-ED: Patient was instructed in a static and dynamic standing balance retraining program, for improved safety and stability with independent functional mobility to include: static standing with feet close x10 secs, feet close with eyes closed x10 secs, tandem stance x10 secs with L foot leading and x7 secs with R foot leading. Patient unable to perform SLS R/L without UE support. Also instructed patient in tandem walking as well as lateral stepping x15' each. ASSESSMENT: Patient tolerated session well, without complaint. She was able to tolerate a progression in gait distance with FWW support and supervision, with improved gait mechanics and pacing, demonstrating safety and stability. PLAN: Patient to discharge to home later today, per provider. Recommend follow up with PT upon discharge. TREATMENT CODE/TIME: Session 1: 30 minutes; 62701, [id number] (08:45) Session 2: 25 minutes; 38512 x2 (13:15)
--- NOTE | 2022-09-19 14:05 | DSE_ITS ---
Date of service: 09/19/22 Time of Service: 14:05 DS: Diagnosis Discharge Diagnosis (1) Sepsis: Status: Resolved Asessment and Plan: see hospital course for details (2) UTI (urinary tract infection): Status: Acute Asessment and Plan: blood cultures no growth. urine culture grew E. coli pansensitive to antibiotics. Patient treated w/ 3 days of Rocephin 2 gm daily and dc home on Cipro 500 mg bid x 5 days. Renal US was negative for acute pathology. (3) Rhabdomyolysis: Status: Resolved Asessment and Plan: patient presented after falls at home and found to have CK of 5300 that declined to 446 after iv fluid hydration. BUN and creatinine were elevated at 39 and 1.3 on admission and declined to 24 and 1.1 at discharge. (4) Acute dehydration: Status: Resolved (5) Elevated troponin level not due to acute coronary syndrome: Status: Resolved Asessment and Plan: patient presented w/ sepsis and elevated troponin I of 565 that declined to 133 prior to discharge and echocardiogram showed normal LV and RV function. see below. (6) Multiple falls: Status: Acute (7) Hyponatremia: Status: Resolved (8) Essential hypertension: Status: Chronic (9) Thyroid nodule greater than or equal to 1 cm in diameter incidentally noted on imaging study: Status: Acute Asessment and Plan: incidental 1.3 cm left thryoid nodule noted on cervial CT scan (done to rule out trauma from her falls); further workup deferred to primary care. TSH was checked and was normal at 1.02. Discharge Plan Disposition Patient Disposition: Home W/Home Health Services Condition: Good Discharge Details Reason For Visit: Rhabdomyolysis, UTI, Dehydration Admit Date/Time: 09/16/22 22:55 Admit Provider: Tu Vela Attending Provider: Tu Vela Primary Care Provider: Olimpia Montez Hospital Course Hospital Course: 87 yr old female w/ PMH of HTN and GERD who had suffered a fall at home a few days prior to her family bringing her to the emergency room. Family called upon her and found her to be weak and to appear to have not been eating or drinking much fluids and she was found to be confused. Evaluation in the ER included CT scan of her head and neck and chest xray as well as routine labs. CT of head and neck showed no acute process. CXR showed no acute pulmonary process. Labs included UA, CMP, CBC, CK, troponin I. She was found to be septic w/ urinary tract infection and to have rhabdomyolysis and type II demand myocardial ischemia. Her CK was 5300 on admission (and came down to 446 after iv fluids) and troponin I was 565 and came down to 133. Transaminases were mildly elevated and she had azotemia w/ BUN 39 and creatinine 1.3. Blood and urine cultures were sent. Blood cultures came back no growth and urine culture grew E. coli which was pansensitive to antibiotics. She was treated w/ iv fluids and given high dose Rocephin 2 gm daily and treated from 09/16 through 09/18/22. She was discharged home on 5 more days of Ciprofloxacin 500 mg bid. Echocardiogram was performed which showed normal LV and RV size and function, LVEF 60%. Sh ehas moderate aortic regurgitation but no significant aortic stenosis and she has mild mitral regurgitation. Renal US was performed d/t her sepsis from UTI to ensure no evidence of pyelonephritis or obstructive uropathy from stones. Renal US was unremarkable. Incidental finding on her CT of her cervical spine was a 1.3 cm left thyroid nodule. Further evaluation of her thyroid nodule and further consideration for stress MPI was left at discretion of patient's primary care provider. Patient was discharge in much improved condition, although patient was a bit anxious about return home where she lives alone. Her daugher was arranging for patient to stay w/ family members for the weekend until patient got adjusted to being out of the hospital. Patient was evaluated by physical therapy and did well w/ use of FWW independently ambulating. P.T. recommended home health w/ home P.T. upon discharge. Orders were place upon discharge to consult w/ home health including nursing, P.T. and DISTRICT SALES COORDINATOR Home Meds and New Rx's Prescriptions: New ciprofloxacin HCl 500 mg tablet 500 mg PO BID Qty: 10 0RF Continued lisinopril 40 mg tablet 40 mg PO DAILY Qty: 90 4RF Rx Instructions: increased dose/ take one tablet daily atenolol 25 mg tablet 25 mg PO DAILY Qty: 90 4RF calcium carbonate-vitamin D3 [Caltrate with Vitamin D3] 600 mg(1,500mg) -800 unit tablet 1 tab PO BID Qty: 60 11RF Discharge Instructions Instructions: Ciprofloxacin (By mouth), Thyroid Nodules (DC), Urinary Tract Infection in Older Adults (DC) Additional Instructions: Please complete all of your antibiotic (Ciprofloxacin); do not take Ciprofloxacin w/ dairy products (should be taken at least 2 hours apart from any dairy products). You were found to have a 1.3 cm thyroid nodule in the left thyroid lobe, however, this was present in 2011 and actually is smaller now (was 1.5 cm), therefore this is probably not a cancer but should be followed up with your primary care provider if this was not already worked up. Do not take your calcium carbonate while you are on Ciprofloxacin. Stop the calcium until you finish your Ciprofloxacin. Stand Alone Forms: Nursing Discharge Form Referrals: Olimpia Montez MD [Primary Care Provider] - 09/24/22 3:40 pm Activity:: Activity as Tolerated Equipment/Supplies:: No Equipment Needed Diet:: Normal Diet Discharge Orders Discharge Orders: Discharge Order (Routine); Ordered 09/19/22 Ordered By: Abdoul Siddiqui Discharge Data Discharge Date/Time-TO BE ENTERED AT DEPARTURE: 09/19/22 14:53 DS: Summary Time Spent with Patient providing and/or coordinating discharge services: Greater than 30 minutes Specific discharge activities: Interview/exam of patient; review of discharge instructions, completion of prescriptions/discharge instructions; discussion w/ nursing and CM; documentation of hospital visit Status at Discharge Functional status at discharge: independent ambulation Overall status at discharge: patient is progressing back to baseline Mental Status: mental status grossly normal Speech and Movement: speech and movement normal Mood: congruent mood Affect: normal affect Exam Narrative Exam Narrative: Patient is alert and oriented she seems rather anxious about returning home when I asked her what her concerns are she says she is fearful of being home alone. I then met with her daughter Kirstin who is working with her other family members to see if Gabi can stay with a family member over the weekend. Abdomen soft nondistended she has no flank tenderness. Patient is eating well this morning. Psych Mental Status: mental status grossly normal Speech and Movement: speech and movement normal Mood: congruent mood Affect: normal affect DS: Data Vitals/I&O Vitals and I&O: Vital Signs Temperature 36.9 C 09/19/22 12:06 Temperature Source Tympanic 09/19/22 12:06 Pulse 67 09/19/22 12:06 Pulse Rhythm Regular 09/19/22 08:37 Pulse 77 09/16/22 23:30 Respiratory Rate 16 09/19/22 12:06 Respiratory Effort Normal, Non-Labored 09/19/22 08:37 Respiratory Depth Normal 09/19/22 08:37 Respiratory Pattern Normal 09/19/22 08:37 Blood Pressure 148/81 H 09/19/22 12:06 Blood Pressure Mean 68 09/16/22 20:31 Blood Pressure Position Sitting 09/16/22 19:51 Pulse Oximetry 99 09/19/22 12:06 Oxygen Delivery Method Room Air 09/19/22 12:06 Oxygen Flow Rate 0 09/19/22 12:06 Pain Level 0 09/19/22 12:06 Comment recheck, RN notified 09/17/22 06:27 Intake & Output 09/18/22 09/19/22 09/19/22 23:59 11:59 23:59 Intake Total 720 / 3375 Output Total 450 / 1000 300 / 300 Balance 270 / 2375 -300 / -300 Weight 43.545 kg Intake: Oral 720 / 720 Output: Urine 450 / 1000 300 / 300 Other: Urine Color Yellow Yellow Urine Appearance Clear Clear Urine Odor Normal Normal Comment pt missed the hat that was in the toilet, but she did void. Voiding Methods Toilet Toilet Data Completed and Pending Completed studies during hospitalization [Text1]: CT scan of the head and cervical spine without contrast demonstrated no acute intracranial process and no acute fracture or subluxation in the cervical spine. Chest x-ray showed no acute pulmonary findings but mild cardiomegaly new Echocardiogram demonstrated normal left ventricular size normal left ventricular wall thickness LVEF 60% with no segmental wall motion abnormalities. Trileaflet aortic valve with thickening of all costs. Moderate aortic regurgitation and no significant stenosis. Mild mitral regurgitation. Peak RVSP 40 mm. Renal ultrasound normal size kidneys right 9.6 cm left 11.2 cm normal echogenicity no hydronephrosis no cyst or mass no nephrolithiasis. Bladder cannot be evaluated due to John catheter in place. Labs on day of discharge: Labs from last 24 hours 09/19/22 09/19/22 09/19/22 06:35 06:35 06:35 WBC 11.60 H RBC 3.48 L Hgb 10.9 L Hct 31.9 L MCV 92 MCH 31.3 MCHC 34.2 RDW 13.0 Plt Count 257 MPV 9.3 Immature Gran % 0.5 Neutrophils % 76.6 Lymphocytes % 11.6 Monocytes % 10.6 Eosinophils % 0.3 Basophils % 0.4 Nucleated RBC % 0.0 Absolute Neutrophils 8.89 H Absolute Lymphocytes 1.35 Absolute Monocytes 1.23 H Absolute Eosinophils 0.03 Absolute Basophils 0.05 Sodium 137 Potassium 3.5 Chloride 105 Carbon Dioxide 23.7 Anion Gap 8.3 BUN 24 H Creatinine 1.1 H Est GFR (CKD-EPI 2020) 49.24 Glucose 104 Calcium 8.7 Creatine Kinase 446 H Procalcitonin 0.4 Preliminary micro results at discharge 09/17/22 23:51 Blood Culture - Preliminary Blood NO GROWTH 24 HOURS 09/17/22 14:30 Blood Culture - Preliminary Blood NO GROWTH 24 HOURS PFSH All Active Problems (Updated 09/20/22 @ 00:01 by JANIS MORGAN) Elevated serum creatinine (Acute) Advanced care planning/counseling discussion (Acute) Palliative care encounter (Acute) Thyroid nodule greater than or equal to 1.5 cm in diameter incidentally noted on imaging study (Acute) Thyroid nodule greater than or equal to 1 cm in diameter incidentally noted on imaging study (Acute) Multiple falls (Acute) UTI (urinary tract infection) (Acute) Mixed hearing loss, bilateral (Acute) Anxiety (Acute) Essential hypertension (Chronic 05/17/13) POLST (Physician Orders for Life-Sustaining Treatment) (Acute) Hearing impairment (Acute) Medical History Gastroesophageal reflux disease (12/18/14) Microscopic hematuria (10/22/16) Surgical History Excision Right cheek~benign mass Extraction of cataract B/L Family History Mother , 96 Heart disease Neoplasm Father , 78 Essential hypertension Heart disease Colon cancer Sister , 50 Cancer Brother , DROWNED at age 39. No problems noted. Sister Breast cancer Son No problems noted. Son No problems noted. Daughter No problems noted. Maternal Grandfather , 48 No problems noted. Paternal Grandfather , 84 No problems noted. Maternal Grandmother , 84 No problems noted. Paternal Grandmother , 74 No problems noted. Social History Smoking/Tobacco Use Status: Never Second Hand Exposure: No Smoking risk assessment performed?: Yes Alcohol Intake: never Drug use: Never Substance use type: does not use Household members: none Housing: house Number of Children: 3 Communication Needs: Hard of Hearing and Corrective Lenses Do you need help understanding health information?: Never Pets and animals: No Sexually active: No Do you think of yourself as: straight/heterosexual Current gender identity: female What is your relationship status?: How often do you talk on the phone with friends or family?: three or more times per week Do you belong to any clubs or organized social groups?: no Panel score (0-1 are the most socially isolated patients): 1 What type of physical activity do you participate in: walking Marylin/Zoroastrianism: No preference Drive intox or ride w/intox entry driver operator: No Time Spent with Patient Time Spent with Patient: <45 minutes Time was spent: preparing to see the patient(eg.review tests), ordering medications,tests, procedures, counseling the patient and care coordination
--- NOTE | 2022-09-19 14:09 | PDOC.HHF2F ---
Home Health Referral Home Health Orders Clinical synopsis of why skilled professionals are needed: Patient presented with symptoms of sepsis found to have urinary tract infection which grew E. coli which was pansensitive. Patient's urinary tract with sepsis was complicated by type II demand myocardial ischemia as evidenced by elevated troponin levels as well as rhabdomyolysis and acute kidney injury. Patient was treated with high-dose Rocephin 2 g IV daily from admission on 09/16/2022 through the day of discharge on 09/17/2022. Patient will be transition to ciprofloxacin 500 mg twice a day for 5 more days. Blood cultures came back no growth. Patient had transient rise in her troponin on admission at 427 which then declined to 133. This is felt to be secondary to type II demand ischemia. EKG showed no ischemic changes echocardiogram showed no wall motion abnormalities with normal LV function she has stable moderate aortic insufficiency and mild mitral regurgitation per echocardiogram. Rhabdomyolysis resolved with IV fluid hydration. At the time of discharge patient was requiring home health services including nursing to monitor her response to antibiotics as well as monitor her blood pressure heart rate and monitor for any further symptoms of infection. Physical therapy was requested to evaluate and treat patient for generalized weakness secondary to recent infection. Medical diagnosis necessitation home health referral: Urinary tract infection with sepsis, acute kidney injury, type II demand myocardial ischemia Registered Nurse: Check all that apply Instruct on new or changed medication(s)/assess compliance: Ordered Assess for exacerbation of medical condition, instruct patient/caregivers on signs and symptoms to report for early detection: Ordered Physical Therapist: Check all that apply Increase strength & endurance for safe mobility at home: Ordered To design/establish home maintenance program: Ordered Fall reduction therapy program for patient with history of frequent falls: Ordered Home safety evaluation and teaching/gait training including stair management (if applicable): Ordered Studio Assistant: Assist with community resources: Ordered Home Bound Status Requires the aid of supportive device (check all that apply): Walker Describe why leaving home would require a considerable and taxing effort: Requires frequent rest periods and Safety Concerns: describe (Increased risk of falls) Encounter Date and Reason: I certify that a FTF encounter for this patient was performed on September 19, 2022 and that such encounter was related to the primary reason the patient requires home health services. The encounter was conducted in the following manner: By me as the certifying physician, NATIONAL [place] ANALYST, PA or By an inpatient physician, NATIONAL [place] ANALYST or PA during an inpatient stay who communicated findings to me, Certification And Authentication I certify that I composed the above information based on my clinical judgment relating to this patient's medical condition and, if applicable, clinical findings communicated to me by the NPP or inpatient physician who performed the FTF encounter. Name of Provider that will be monitoring home health services: Olimpia Montez
--- NOTE | 2022-09-19 14:16 | PDOC.CMDIS ---
- If Service Date Differs Date of service: 09/19/22 Time of Service: 14:16 LACE Index Scoring Tool - Questions: Length of Stay (in days): 3 Acuity (Admit via E.D.?): Yes E.D. Visits: 1 - Answers: Total Score: 7 Risk of Readmission: Low Risk Care Management Discharge Reason for Hospitalization: URI, Rhabdomyolysis, Acute dehydration Discharge Plan: Gabi is discharge home on PO ABX with New [facility] RN/PT services. She is transported via private vehicle with family. Gabi will follow up with her PCP on 09/24/22, as scheduled and discharge plan of care as prescribed. Her DIL will be staying with her at least through the weekend. Patient/Family Education Needs: Review discharge instructions, limitations, medications and plan to follow up with PCP. Discuss ask me three. Services Needed at Discharge: Home Health Care Services ([facility] RN/PT. CM notified [facility].)
--- NOTE | 2022-09-24 13:19 | PT.INDS ---
Date of service: 09/24/22 PT Notes Visit Reasons: Rhabdomyolysis, UTI, Dehydration Inpatient Physical Therapy Evaluation Date: 09/24/2022 Dates of service: 09/17/2022 through 2022 This is a clinical summary of care provided for the duration of dates listed above. No charge was made in the completion of this documentation. Referring Doctor:Tu Gonzalez PT Orders: PT CONSULT: limited ability Precautions: standard, fall risk Patient Profile/Admitting Diagnosis: Rhabdomyolysis, UTI,?acute dehydration Rena is a pleasant 87-year-old female presenting to ED after approximately 4 days after a fall she presents with weakness and altered mental status to the ED on 09/16/2022.? Prior to admission patient independent at home had started using single-point cane over the last couple of days due to unsteady on feet and difficulty getting up off the floor after putting wood in the stove.? In general she does not use assistive device.? She states that she feels tired and has no acute pain reported. PMHX:? All Active Problems?(Updated 09/17/22 @ 04:29 by Tu Vela) Thyroid nodule greater than or equal to 1.5 cm in diameter incidentally noted on imaging study (Acute) Thyroid nodule greater than or equal to 1 cm in diameter incidentally noted on imaging study (Acute) Hyponatremia (Acute) Elevated troponin level not due to acute coronary syndrome (Acute) Acute dehydration (Acute) Multiple falls (Acute) UTI (urinary tract infection) (Acute) Rhabdomyolysis (Acute) Mixed hearing loss, bilateral (Acute) Anxiety (Acute) Essential hypertension (Chronic 05/17/13) POLST (Physician Orders for Life-Sustaining Treatment) (Acute) Hearing impairment (Acute) What is at your best friendMedical History? Gastroesophageal reflux disease (12/18/14) Microscopic hematuria (10/22/16) Surgical History? Excision Right cheek~benign massExtraction of cataract B/L Social History/Home Situation: Patient lives alone in her home prior to admission with out assistive device.? Patient has son who lives nearby but works daily.? Patient independent in managing stairs and all activities of daily living prior to admission. Equipment Owned/DME: SPC, will likely need RW Subjective: NT. See most recent INDUCTION MACHINE SETTER notes. Objective:? General Observation: NT. See most recent INDUCTION MACHINE SETTER notes. Mental Status: NT. See most recent INDUCTION MACHINE SETTER notes. Pain: NT. See most recent INDUCTION MACHINE SETTER notes. Vital Signs: NT. See most recent INDUCTION MACHINE SETTER notes. ROM: Right Upper Extremity: WFL Left Upper Extremity: WFL Right Lower Extremity: WFL Left Lower Extremity: WFL Strength: Right Upper Extremity: WFL Left Upper Extremity: WFL Right Lower Extremity: WFL Left Lower Extremity: WFL Sensation:?Normal sensation to light touch BED MOBILITY/TRANSFERS? Sit-stand: SBA? Stand-sit: SBA ? GAIT? Assistive Device: No AD FWW ? Weight bearing: Full Assist: CGA with No AD Supervision with FWW? Distance:? 300' in a.m.; 600' in p.m. ? Deviation: Slow pacing and short step height/length, somewhat unsteady, mild path deviation without FWW; improved stability, improved gait and pacing with FWW support Balance:? Static Sitting: Normal Dynamic Sitting: Normal Static Standing: Unsteady, fair able to stand on first trial times less than 5 seconds without holding onto RW, second trial 20 seconds Dynamic Standing: Poor unable to march in place without holding onto RW Assessment:??Patient is a 87year old female referred to physical therapy services with the diagnosis of rhabdomyolysis, UTI, dehydration.? Patient presents with clinical signs and symptoms consistent with admission diagnosis, as demonstrated by the following impairment level findings: Limited gait, unsteady balance, decreased endurance, decreased mobility.? Impairments are contributing to the following functional limitations: AMPAC score. Goals: Goals X1 week 1. Supine-Sit independent without VC NOT MET 2. Sit-Supine independent without VC NOT MET 3. Sit-Stand independent NOT MET 4. Stand-Sit independent NOT MET 5. Bed-Chair independent NOT MET 6. Chair-Bed independent NOT MET 7. Gait ambulate with least AD RW and progressed to SPC as able NOT MET 8. Stairs evaluate NOT MET 9. Independent with home exercise program NOT MET 10. Balance good dynamic and static standing NOT MET DISCHARGE RECOMMENDATIONS: [] ? Home with no services [] [x] ? Home with services physical therapy to assess home setting and progress ambulatory and independent status ?? Home with outpatient PT [] [] ? SNF for continued rehabilitation [] [] ? Extrusion Press Supervisor Care [] [] ? SNF versus LTC based on ability to participate and progress [] TREATMENT CODE/TIME: NC Thank you for the opportunity to participate in the care of this patient. Carla Srinivasan PT, DPT, CLT [facility] [place], [place]
== END 2022-09-19 14:53 | disposition home health service (06) | DRG 872 ==
LOC: ER 23:17 → MS 23:55
PROVIDERS: Internal Medicine; Admitting Provider Family Medicine; Emergency Provider Student in an Organized Health Care Education/Training Program; PCP Family Medicine; Visit Provider Family Medicine
DX: A41.9 Sepsis, unspecified organism (principal); M62.82 Rhabdomyolysis; N39.0 Urinary tract infection, site not specified; E87.1 Hypo-osmolality and hyponatremia; E86.0 Dehydration; R29.6 Repeated falls; R74.8 Abnormal levels of other serum enzymes; I10 Essential (primary) hypertension; E04.9 Nontoxic goiter, unspecified; F41.9 Anxiety disorder, unspecified; K21.9 Gastro-esophageal reflux disease without esophagitis; R41.0 Disorientation, unspecified; W19.XXXA Unspecified fall, initial encounter; Z66 Do not resuscitate; H91.93 Unspecified hearing loss, bilateral; R53.1 Weakness; I08.0 Rheumatic disorders of both mitral and aortic valves; B96.20 Unspecified Escherichia coli [E. coli] as the cause of diseases classified elsewhere
CPT/HCPCS: 36415; 76770; 80048; 80053; 80076; 82550; 82805; 84145; 85027; 87040; 87077; 87635; 93005; 96361; 96365; 97110; 97112; 97161; 97165; 97530; 97535; 99285; 70450; 71045; 72125; 81003; 81015; 83605; 83735; 83880; 84443; 84484; 85025; 87086; 87186; 93010; 93306; 99223; 99232; 99239; J1644

== ENCOUNTER 2023-02-20 02:22 | Outpatient (CLI) | payer MEDICARE, SELFPAY ==
[2023-02-20 12:43] LABS: Anion Gap 6.8 mmol/L (3-11); BUN 17 mg/dL (7-18); CO2 27.2 mmol/L (21.0-32.0); CREATININE 0.7 mg/dL (0.55-1.02); Calcium 9.5 mg/dL (8.5-10.1); Chloride 97 mmol/L (98-107); Glucose 99 mg/dL (74-106); Potassium 4.8 mmol/L (3.5-5.1); Sodium 131 mmol/L (136-145)
== END 2023-02-20 02:23 | disposition home or self-care (01) ==
LOC: LOS 02:23
PROVIDERS: PCP Family Medicine; Visit Provider Family Medicine
DX: I10 Essential (primary) hypertension (principal)
CPT/HCPCS: 36415; 80048

== ENCOUNTER 2023-05-19 14:50 | Outpatient (REF) | payer MEDICARE, SELFPAY | END 2023-05-19 14:51 | disposition home or self-care (01) | LOC: LBN 14:50 | PROVIDERS: PCP Family Medicine; Visit Provider Family Medicine | DX: R41.0 Disorientation, unspecified (principal); R53.83 Other fatigue | CPT/HCPCS: 87086 ==

== ENCOUNTER 2023-05-19 15:01 | Outpatient (CLI) | payer MEDICARE, SELFPAY ==
[2023-05-19 14:53] LABS: Abs Immature Grans 0.26 10^3/uL (0.0-0.06); Absolute Basophil Count 0.08 10^3/uL (0.0-0.2); Absolute Monocyte Count 2.49 10^3/uL (0.1-0.8); Basophils % 0.3; HCT 37.2 % (36.0-46.0); HGB 12.7 g/dL (11.2-15.7); Immature Grans % 0.9; Lymphocytes % 3.9; MCHC 34.1 % (32.0-36.0); MCV 91 fL (80-95); MPV 8.8 fL (8.0-11.0); Monocytes % 8.8; Neutrophils % 86.1; Platelet Count 285 10^3/uL (130-400); RDW 12.8 % (11.7-14.6); RDW-SD 42.5 fL
[2023-05-19 15:02] LABS: Absolute Neutrophil Count 24.33 10^3/uL (1.2-6.7); WBC 28.26 10^3/uL (4.4-10.8)
[2023-05-19 15:11] LABS: Diff Comment Agrees w/ Instrument; RBC Morphology Normal
[2023-05-19 15:13] LABS: ALT 25 U/L (14-59); AST 19 U/L (15-37); Albumin 3.5 g/dL (3.4-5.0); Alkaline Phosphatase 81 U/L (46-116); Anion Gap 9.9 mmol/L (3-11); BUN 40 mg/dL (7-18); Bilirubin, Total 1.1 mg/dL (0.2-1.0); CO2 25.1 mmol/L (21.0-32.0); CREATININE 1.8 mg/dL (0.55-1.02); Calcium 9.6 mg/dL (8.5-10.1); Chloride 95 mmol/L (98-107); Glucose 167 mg/dL (74-106); Potassium 4.3 mmol/L (3.5-5.1); Sodium 130 mmol/L (136-145); TSH (W/Ref FT4) 0.78 uIU/mL (0.36-3.74); Total Protein 7.8 g/dL (6.4-8.2)
== END 2023-05-19 15:02 | disposition home or self-care (01) ==
LOC: LBO 15:06
PROVIDERS: PCP Family Medicine; Visit Provider Family Medicine
DX: R41.0 Disorientation, unspecified (principal); Z00.00 Encounter for general adult medical examination without abnormal findings; E03.9 Hypothyroidism, unspecified
CPT/HCPCS: 36415; 80053; 84443; 85025

== ENCOUNTER 2023-06-24 02:46 | Outpatient (CLI) | payer MEDICARE, SELFPAY ==
[2023-06-24 13:06] LABS: ALT 27 U/L (14-59); AST 23 U/L (15-37); Albumin 3.7 g/dL (3.4-5.0); Alkaline Phosphatase 66 U/L (46-116); Anion Gap 8.7 mmol/L (3-11); BUN 24 mg/dL (7-18); Bilirubin, Total 0.5 mg/dL (0.2-1.0); CO2 27.3 mmol/L (21.0-32.0); CREATININE 0.9 mg/dL (0.55-1.02); Calcium 9.3 mg/dL (8.5-10.1); Chloride 101 mmol/L (98-107); Estimated GFR 62.26 (mL/min/1.73m2); Glucose 96 mg/dL (74-106); Potassium 4.7 mmol/L (3.5-5.1); Sodium 137 mmol/L (136-145)
== END 2023-06-24 02:47 | disposition home or self-care (01) ==
LOC: LOS 02:47
PROVIDERS: PCP Family Medicine; Visit Provider Family Medicine
DX: I10 Essential (primary) hypertension (principal)
CPT/HCPCS: 36415; 80053

== ENCOUNTER 2023-11-08 16:42 | Emergency (ER) | payer MEDICARE, SELFPAY ==
[2023-11-08 16:55] VITALS: BP 159/64; PULSE 62; RESP 14; TEMP 37; O2SAT 97
--- NOTE | 2023-11-08 17:00 | DI.RAD_ITS ---
Exam(s) XR HAND RT COMPLETE EXAM: XR HAND RT COMPLETE CLINICAL HISTORY: 2nd digit and dorsal trauma. TECHNIQUE: 2D digital imaging was performed of the right hand. Three images were obtained. AP, late ral and oblique views were obtained. COMPARISON: No exams were available for comparison FINDINGS: BONES: No acute fracture is present. No bony destructive lesion is seen. JOINTS: No dislocation present. Moderate degenerative changes are seen in the hand. SOFT TISSUE: There is soft tissue swelling of the 2nd finger. No radiopaque foreign body is seen. IMPRESSION: No acute fracture or dislocation. DATA REPOSITORY: RADIATION DOSE DELIVERED:
--- NOTE | 2023-11-08 18:35 | DI.VRAD_ITS ---
PROCEDURE INFORMATION: Exam: XR Right Hand Exam date and time: 11/08/2023 5:22 PM Age: 88 years old Clinical indication: Injury or trauma; 2nd digit and dorsal trauma TECHNIQUE: Imaging protocol: Radiologic exam of the right hand. Views: 3 or more views. COMPARISON: No relevant prior studies available. FINDINGS: Bones/joints: No acute fracture. 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 The findings are most prominent in the 5th digit. Soft tissues: No large subcutaneous soft tissue abnormality. IMPRESSION: 1. No acute fracture. 2. Osteoarthritic changes as described. Dictated and Authenticated by: Lynette Robbins MD. Ordering:SAMPSON Davis MD
--- NOTE | 2023-11-08 18:38 | ED.GENADUL_ITS ---
Discharge Plan Disposition Patient Disposition: Home Discharge Details Clinical Impression: Contusion of finger with damage to nail Primary Care Provider: Olimpia Montez ED Provider: Ryan Ca Home Meds and New Rx's Prescriptions: No Action atenolol 25 mg tablet 25 mg PO DAILY Qty: 90 4RF lisinopril 40 mg tablet 40 mg PO DAILY Qty: 90 4RF Hold Instructions: hypotension Rx Instructions: increased dose/ take one tablet daily calcium carbonate-vitamin D3 [Caltrate with Vitamin D3] 600 mg(1,500mg) -800 unit tablet 1 tab PO BID Qty: 60 11RF Discharge Instructions Instructions: Crush Injury (ED) Additional Instructions: Review of your radiological imaging shows no acute fracture. Feel free to return the emergency department for any new or significant worsening of symptoms otherwise continue to perform daily soaks with Epsom salts 2-3 times a day, typical dressing changes twice a day and you may use topical antibiotic ointment for the first 3 to 5 days as needed. Return immediately for any signs of infection otherwise follow-up with your primary care provider for reassessment Referrals: Olimpia Montez MD [Primary Care Provider] - (As needed for reassessment) Discharge Data Discharge Date/Time-TO BE ENTERED AT DEPARTURE: 11/08/23 19:08 HPI General Mode of arrival: ambulatory . Date/Time Provider Initiated Documentation: 11/08/23 17:11 . Limitations to Documentation: no limitations . Information obtained by: patient . History of Present Illness 88 year old F presents to the emergency department with the chief complaint of Right index finger injury, described as moderate, and is localized to the right and upper extremity. Patient started experiencing this day(s) (2) and it has been constant. No relieving factors improve symptom(s), No exacerbating f actors reported . Patient notes no other symptoms.. Patient did receive the following treatments prior to arrival, none Related Data Home Medications Medication Instructions Recorded Confirmed calcium carbonate 600 mg-vitamin 1 tab PO BID #60 tabs 06/06/20 11/08/23 D3 20 mcg (800 unit) tablet (Caltrate with Vitamin D3) atenolol 25 mg tablet 25 mg PO DAILY #90 tabs 03/20/23 11/08/23 lisinopril 40 mg tablet 40 mg PO DAILY #90 tabs 03/20/23 11/08/23 Previous Rx's Medication Instructions Recorded calcium carbonate 600 mg-vitamin 1 tab PO BID #60 tabs 06/06/20 D3 20 mcg (800 unit) tablet (Caltrate with Vitamin D3) atenolol 25 mg tablet 25 mg PO DAILY #90 tabs 03/20/23 lisinopril 40 mg tablet 40 mg PO DAILY #90 tabs 03/20/23 Allergies Allergy/AdvReac Type Severity Reaction Status Date / Time citalopram AdvReac Intermediate PANIC Verified 11/08/23 16:58 ATTACKS zolpidem AdvReac Intermediate CONFUSION Verified 11/08/23 16:58 General Stated Complaint: Orthopedic ED: 4 Review of Systems Musculoskeletal Musculoskeletal: Reports as per HPI, Denies numbness and Denies tingling Integumentary/Breasts Skin/Breast: Reports unusual bruising Neurologic Neurologic: Denies numbness and Denies tingling Exam Const General: cooperative, no acute distress and not ill appearing Orientation: alert, awake and oriented x3 HENMT Mouth: moist mucous membranes Resp Effort & Inspection: normal respiratory effort, able to speak in complete sentences and no respiratory distress Skin General skin exam: no rashes or lesions noted Neuro General: patient alert, patient awake, patient oriented x3, moves all extremities and no focal motor deficits Sensory Exam: no sensory deficits noted Extrem Right upper extremity: hand Details: normal capillary refill, neurosensory exam normal, tendon exam normal, tenderness Location: of the 2nd digit Location: at the distal phalanx, normal ROM of fingers, swelling Location: of the 2nd digit Location: at the distal phalanx and ecchymosis Location: of the 2nd digit Location: at the distal phalanx Course Vital Signs Vital signs: Vital Signs Temperature 37.0 C 11/08/23 16:55 Pulse 62 11/08/23 16:55 Respiratory Rate 14 11/08/23 16:55 Blood Pressure 159/64 H 11/08/23 16:55 Pulse Oximetry 97 11/08/23 16:55 Temperature 37.0 C 11/08/23 16:55 Temperature Source Oral 11/08/23 16:55 Pulse 62 11/08/23 16:55 Respiratory Rate 14 11/08/23 16:55 Respiratory Effort Normal, Non-Labored 11/08/23 16:58 Blood Pressure 159/64 H 04/21/24 16:55 Blood Pressure Position Sitting 11/08/23 16:55 Pulse Oximetry 97 11/08/23 16:55 Oxygen Delivery Method Room Air 11/08/23 16:55 Oxygen Flow Rate 0 11/08/23 16:55 Pain Level 0 11/08/23 17:00 Medical Decision Making Patient presenting to the emergency department with [id number] with chief complaint of right index finger injury. Patient reports 2 days ago she was splitting wood and states she struck her finger with the blunt aspect of the ax. Patient denies any other injury or trauma, states she has been soaking it and using topical antibiotic ointment. Physical exam shows significant ecchymosis to the right index finger to the distal aspect with what appears to be some nail damage but sensation and cap refill is intact distal to injury. Will perform radiological imaging to assess for acute fracture versus blunt contusion. Will also verify tetanus status. Reviewed radiological imaging and radiologist interpretation that shows no acute signs of fracture. Patient was not up-to-date on tetanus so tetanus was updated otherwise I feel that conservative management is appropriate. After discussion of diagnosis and plan of care patient and family has no further needs, questions, or concerns and states clear understanding to return to the emergency department for any worsening symptoms. This documentation was generated using [employer] what[employer] in [employer] dictation system, please disregard any oddities of phrase or misspellings. Imaging Data Radiologic Study: Imaging: X-Ray Radiologist's impression: Exam(s) PROCEDURE INFORMATION: Exam: XR Right Hand Exam date and time: 11/08/2023 5:22 PM Age: 88 years old Clinical indication: Injury or trauma; 2nd digit and dorsal trauma TECHNIQUE: Imaging protocol: Radiologic exam of the right hand. Views: 3 or more views. COMPARISON: No relevant prior studies available. FINDINGS: Bones/joints: No acute fracture. 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 The findings are most prominent in the 5th digit. Soft tissues: No large subcutaneous soft tissue abnormality. IMPRESSION: 1. No acute fracture. 2. Osteoarthritic changes as described. Dictated and Authenticated by: Lynette Robbins MD. Quality:SDOH Health Related Social Needs: No Data to Display PFSH All Active Problems Contusion of finger with damage to nail (Acute) Bilateral sensorineural hearing loss (Acute) Anxiety (Chronic) Essential hypertension (Chronic 05/17/13) POLST (Physician Orders for Life-Sustaining Treatment) (Chronic) Thyroid nodule greater than or equal to 1.5 cm in diameter incidentally noted on imaging study (Chronic) Short-term memory loss (Acute) slums score 22/30 04/11 Medical History Gastroesophageal reflux disease (12/18/14) Microscopic hematuria (10/22/16) Surgical History Excision Right cheek~benign mass Extraction of cataract B/L Family History Mother , 96 Heart disease Neoplasm Father , 78 Essential hypertension Heart disease Colon cancer Sister , 50 Cancer Brother , DROWNED at age 39. No problems noted. Sister Breast cancer Son No problems noted. Son No problems noted. Daughter No problems noted. Maternal Grandfather , 48 No problems noted. Paternal Grandfather , 84 No problems noted. Maternal Grandmother , 84 No problems noted. Paternal Grandmother , 74 No problems noted. Social History Smoking/Tobacco Use Status: Never Second Hand Exposure: No Smoking risk assessment performed?: Yes Alcohol Intake: never Drug use: Never Substance use type: does not use Household members: none Housing: house Number of Children: 3 Communication Needs: Hard of Hearing and Corrective Lenses Do you need help understanding health information?: Never Pets and animals: No Sexually active: No Do you think of yourself as: straight/heterosexual Current gender identity: female What is your relationship status?: How often do you talk on the phone with friends or family?: three or more times per week Do you belong to any clubs or organized social groups?: no Panel score (0-1 are the most socially isolated patients): 1 What type of physical activity do you participate in: walking Marylin/Taoist: No preference Drive intox or ride w/intox jitney driver: No
[2023-11-08 19:10] VITALS: BP 159/64; PULSE 62; RESP 14; TEMP 37; O2SAT 97
== END 2023-11-08 19:08 | disposition home or self-care (01) ==
PROVIDERS: Emergency Provider Nurse Practitioner Family; PCP Family Medicine
DX: S60.121A Contusion of right index finger with damage to nail, initial encounter (principal); I10 Essential (primary) hypertension; Z23 Encounter for immunization; W22.8XXA Striking against or struck by other objects, initial encounter; Y93.89 Activity, other specified; Y92.017 Garden or yard in single-family (private) house as the place of occurrence of the external cause
CPT/HCPCS: 90471; 90715; 99283; 73130

== ENCOUNTER 2024-03-23 15:00 | Outpatient (CLI) | payer MEDICARE, SELFPAY ==
[2024-03-23 16:16] LABS: Anion Gap 5.5 mmol/L (3-11); BUN 20 mg/dL (7-18); CO2 28.5 mmol/L (21.0-32.0); CREATININE 0.8 mg/dL (0.55-1.02); Calcium 9.4 mg/dL (8.5-10.1); Chloride 100 mmol/L (98-107); Estimated GFR 71.71 (mL/min/1.73m2); Glucose 98 mg/dL (74-106); Potassium 4.5 mmol/L (3.5-5.1); Sodium 134 mmol/L (136-145)
== END 2024-03-23 15:01 | disposition home or self-care (01) ==
LOC: LBO 15:01
PROVIDERS: PCP Family Medicine; Visit Provider Family Medicine
DX: I10 Essential (primary) hypertension (principal)
CPT/HCPCS: 36415; 80048

== ENCOUNTER 2025-03-10 00:45 | Outpatient (CLI) | payer MEDICARE, SELFPAY ==
[2025-03-10 12:58] LABS: Anion Gap 8.7 mmol/L (3-11); BUN 16 mg/dL (7-18); CO2 26.3 mmol/L (21.0-32.0); Calcium 9.2 mg/dL (8.5-10.1); Chloride 100 mmol/L (98-107); Estimated GFR 83.65 (mL/min/1.73m2); Glucose 108 mg/dL (74-106); Potassium 4.3 mmol/L (3.5-5.1); Sodium 135 mmol/L (136-145)
== END 2025-03-10 00:46 | disposition home or self-care (01) ==
LOC: LOS 00:45
PROVIDERS: PCP Family Medicine; Referring Provider Family Medicine; Visit Provider Family Medicine
DX: I10 Essential (primary) hypertension (principal)
CPT/HCPCS: 36415; 80048